=== PATIENT | female | born 1960 | race Caucasian/White ===

== ENCOUNTER → 2016-06-30 | Outpatient (CLI) | payer BC ==
[~2016-06-30] MED LIST: ALBUAER2 INH; CHOL100010 PO; CIPR1TAB11 PO; CLC100 PO; CLR10 PO; CLTP PO; IBUP-1050 PO; METR-163 PO; MULT-513 PO; OSTEO BI FLEX PO; OXYC1TAB3 PO; PROBIOTICS PO; SNG10 PO; ZNTT/150 PO
--- NOTE | 2016-06-30 09:57 | DIAGNOSTIC IMAGING REPORT ---
CT SCAN OF THE PARANASAL SINUSES CLINICAL HISTORY: Chronic sinusitis. Deviated nasal septum. COMPARISON STUDY: CT scan of the paranasal sinuses dated 03/28/2014. TECHNIQUE: High-resolution CT scan of the paranasal sinuses is performed. Images are reviewed in the axial, sagittal, and coronal planes. IV contrast was not administered for this examination. Examination is performed using the fusion protocol. CT DOSE: 547.45 mGy.cm FINDINGS: Maxillary antra: Trace dependent mucosal thickening is seen bilaterally. There are 2 incomplete bony septations seen within the inferior left maxillary antrum. Anterior ethmoid sinuses: Clear. Posterior ethmoid sinuses: Clear. Sphenoid sinuses: Trace mucosal thickening and fluid is seen on the right. Clear on the left. Frontal sinuses: Trace mucosal thickening is seen bilaterally. Ostiomeatal complexes: Patent bilaterally. Frontoethmoidal and sphenoethmoidal recesses: Patent bilaterally. Carotid arteries: The carotid arteries are protuberant but covered. A septal attachment is seen bilaterally. Ethmoid roofs: There is asymmetric elevation of the left ethmoid roof as compared to the right. Nasal turbinates: Normal in appearance. Nasal septum: There is mild leftward deviation of the bony nasal septum with a rightward projecting spur seen posteriorly. Optic nerves: Covered. Orbits: The bony orbits are intact. Orbital contents are normal in appearance. Calvarium: The imaged calvarium is normal in appearance Mastoid air cells: Well pneumatized. Brain parenchyma: Partially visualized brain parenchyma is within normal limits. IMPRESSION: Mild paranasal sinus disease as above. Electronically signed by: Hi Arana M.D. 06/30/2016 9:55 AM Dictated Date/Time: 06/30/2016 9:52 AM
== END | disposition home or self-care (01) ==
LOC: C.CTS 09:40
DX: J01.90 Acute sinusitis, unspecified (principal); J34.2 Deviated nasal septum; J30.9 Allergic rhinitis, unspecified

== ENCOUNTER → 2017-10-26 | Outpatient (CLI) | payer OTHER ==
[~2017-10-26] MED LIST changes: -OXYC1TAB3 PO; +RANI150T85 PO; -ZNTT/150 PO
--- NOTE | 2017-10-26 09:21 | DIAGNOSTIC IMAGING REPORT ---
CT SCAN OF THE CHEST WITHOUT IV CONTRAST CLINICAL HISTORY: Asthma. Laryngopharyngeal reflux. Cough. COMPARISON STUDY: Chest x-ray dated 10/30/2015. TECHNIQUE: CT scan of the thorax was performed from the thoracic inlet to the upper abdomen. Images are reviewed in the axial, sagittal, and coronal planes. IV contrast was not administered for this examination as per the referring clinician. A dose lowering technique was utilized adhering to the principles of ALARA. CT DOSE: 728.19 mGy.cm FINDINGS: Thyroid: Imaged portions of the thyroid gland are normal in size and attenuation. Thoracic aorta: The thoracic aorta is normal in caliber and demonstrates standard 3-vessel arch anatomy. Heart: The heart is normal in size and without pericardial effusion. There are scattered coronary artery calcifications. Lungs and pleural spaces: There is a small fat-containing Bochdalek hernia at the left lung base. No airspace consolidation or pleural effusion is identified. The trachea and central airways are clear. Mediastinum: There is no mediastinal lymphadenopathy. Sweetie: Not well assessed without IV contrast. Axillae: There is no axillary lymphadenopathy. Upper abdomen: There is a small hiatal hernia. The gallbladder surgically absent. Hepatic steatosis is observed. Diverticula are noted in the partially imaged left colon. Skeletal structures: The skeletal structures are osteopenic. No lytic or blastic bony lesions are seen. Mild degenerative change and scoliosis are noted in the thoracic spine. Arthritic change is also seen in the shoulders. IMPRESSION: The lungs are clear. Electronically signed by: Hi Arana M.D. 10/26/2017 9:19 AM Dictated Date/Time: 10/26/2017 9:16 AM
== END | disposition home or self-care (01) ==
LOC: C.CTS 09:03
PROVIDERS: ATTEND Internal Medicine Critical Care Medicine
DX: J45.909 Unspecified asthma, uncomplicated (principal); K21.9 Gastro-esophageal reflux disease without esophagitis

== ENCOUNTER 2020-12-17 20:47 | Inpatient (IN) ==
[2020-12-17] MEDS ORDERED: ONDANSETRON INJ 2 MG/ML 2 ML VIAL IV STA (21:12)
[2020-12-17] MEDS ORDERED: SODIUM CHLORIDE 0.9% 1000ML 2,000 ML IV ONE (21:12)
[2020-12-17] MEDS ORDERED: ACETAMINOPHEN 500 MG TAB PO STA (21:12)
[2020-12-17] MEDS ORDERED: MoRPHine SULFATE 10 MG/ML CARP/VIAL IV STA ×2 (21:12→23:10)
--- NOTE | 2020-12-17 21:15 | Emergency Department Note ---
Impression & Plan Severe sepsis, Diverticulitis, Lactic acidosis ED Provider Note Name: KANCHAN CARTER Age: 60 Sex: F Arrives Via: Ambulance Informant: Patient, EMS ED Provider: Bry Abbott MD Chief Complaint: Illness Impression: Severe Sepsis Acute Diverticulitis Lactic Acidosis Medical Decision Makin yr old female with history asthma and seasonal allergies who over the years has had periodic diverticulitis. Symptoms of lower abdominal pain starting 10 days ago unimproved with PO Flagyl. Rapidly worsening illness today with fevers, chills, rigors, and lightheaded. Arrives via EMS ill appearing and in moderate distress. Tachy, febrile, tachypneic with LLQ point TTP without peritonitis. Sepsis work-up initiated with labs, cultures, lactate, NSS Bolus (3L IV, Given the patients BMI >30, IBW was used to calculate at 30ml/kg+ fluid bolus), followed by empiric abx. CT obtained reveals acute diverticulitis with likely developing ileus. Following hydration she is looking remarkably improved, breathing comfortably and HR improving. Labs with lactic acidosis, mild wbc elevation and mild CRP-Procal elevations. Hospitalist consulted for further evaluation and management. Prior Medical Record and Triage/Nursing Notes reviewed by Me Additional history obtained from chart Differentials:Viral syndrome, otitis, pharyngitis, pneumonia, influenza, meningitis, urinary tract infection, sepsis, bacteremia, as well as other pathologies. Vital Signs: reviewed and remarkable for fever, tachy, tachypnea Interventions: saline lock, nss bolus 3 L IV, cefepime 2gm iv, vanco IV, morphine IV x 2, tylenol po Labs:Reviewed and remarkable for elevated wbc, crp, procal Imaging:X ray results are stated below per my interpretation: Chest: 1 view: No infiltrate, no effusion, normal cardiac border. [facility] Radiologist interpretation reviewed by me: "CT ABDOMEN & PELVIS With Contrast: Normal cardiac size. Clear lung bases. Possible mild diffuse fatty liver. Status post cholecystectomy otherwise unremarkable below system. Normal pancreas, spleen and bilateral adrenal glands. Tiny simple cysts within the right kidney measuring 4 mm. Otherwise normal right kidney. Normal left kidney. Atherosclerotic disease of aorta with no aneurysm. Fluid within the distal esophagus suggestive of reflux. Remainder of the stomach otherwise unremarkable. Several loops of small bowel slightly distended within the left upper quadrant up to a diameter of 3.8 cm,, likely localized ileus. A adjacent inflammatory changes in the region of the descending colon junction with the transverse portion by the splenic flexure in the region of diverticuli with thickening of the wall compatible with diverticulitis. No abscess. Normal appendix. Second site of inflammatory process at the level of the sigmoid junction with descending colon raising the concern of second side of diverticulitis. Uterine atrophy. Unremarkable urinary bladder. Degenerative disease of the spine. No abscess. Radiologist: Rayna Blue MD" EKG:Per My Interpretation: Indication Sepsis: Sinus Tachy 146 bpm, qtc 405. No Ectopy. diffuse ST depressions and some T wave inversions likely rate related. Compared to EKG 02/24/[address]ressions and T wave inversions new Cardiac/Tele Monitoring: Cardiac Monitoring: An Order was placed for continuous cardiac monitoring. The monitor shows a rate of 140 with a sinus tach rhythm. Consults:Dr Shaw KENNY Hospitalist Plan: Disposition:Hospitalization. Condition: Good History of Present Illness:60 yr old female arrives for evaluation of illness. Patient with 10 days of lower abdominal cramping. Increasing pain and radiation to hips and back over last few days. Worse with movement. Notes increasing fevers today and illness. Feels weakness and shaky. Associated headaches, chills mild diarrhea. No trauma, injuries, falls. She has been on Flagyl for 10 days without improvement. She has history of Diverticulitis several years ago. History of cholecystectomy, no bowel surgery.. Denies sob, chest pain, syncope, neck stiffness, rashes, leg swelling, back pain, urinary symptoms, bleeding/bruising, nor other symptoms. Exertion makes worse rest makes better. ROS: See above HPI for pertinent positives & negatives. A total of 10 systems reviewed and were otherwise negative. Past Medical History:Diverticulitis, Seasonal Allergies, Asthma Past Surgical History:Cholecystectomy, Parotidectomy, Tonsillectomy, [place] teeth Family History:See Below Social History:See Below Home Medications:See Below Allergies:See Below Vitals:Blood Pressure: 146/106, Pulse 145, RR 26, T 39.6C, O2 93% on RA Physical Exam: GENERAL: Patient is ill appearing and in moderate distress. EYES: No scleral icterus, unremarkable pupils. ENT: Mucous membranes dry, no nasal congestion. NECK: No masses appreciated, nomeningismus, trachea is midline. RESPIRATORY: No dyspnea though is tachypneic. Clear to auscultation and equal bilaterally. No wheeze, no rhonchi. CARDIOVASCULAR: Tachy.No murmurs, rubs, gallops appreciated. GASTROINTESTINAL: Abdomen soft, with point TTP over mid LLQ, otherwise non- tender, no peritonitis.Bowel sounds positive.No masses appreciated. BACK: No midline tenderness, no CVA tenderness EXTREMITIES: Normal motion all extremities, no cyanosis, no edema. NEUROLOGIC: Alert and oriented, no acute motor or sensory deficits, no focal weakness, cranial nerves grossly intact. SKIN: No rash, no jaundice, no diaphoresis. PSYCH: Appropriate GCS: 15 ED Course: Times/Reassessments: patient evaluated emergently on arrival at nursing request due to her being so ill appearing. Sepsis work-up & resuscitation initiated with multiple IVs obtained. Patient vastly improved with fluids. Agreeable to hospitalization Critical Care: I have personally spent 40 minutes of critical care time in the direct management of this patient. Severe sepsis due to diverticulitis with tachycardia, febrile, lactic acidosis. This was a life/limb threatening event. This 40 minutes is in excess of all separately billable procedures. Bry Abbott MD Past Med/Surg History Medical History (Updated 12/18/20 @ 02:22 by Bry Abbott MD) Acute diverticulitis Allergic rhinitis Asthma Surgical History (Updated 06/21/19 @ 14:40 by Noemi Belcher) History of colon surgery History of colonoscopy History of tonsillectomy and adenoidectomy Family History (Updated 06/21/19 @ 14:42 by Noemi Belcher) Mother Benign colon polyp Osteoporosis Aunt Colon cancer Osteoporosis Grandmother (Maternal) Colon cancer Father Congenital heart disease Diabetes Denies family history of Ovarian cancer Breast cancer Social History (Updated 06/21/19 @ 14:43 by Noemi Belcher) Smoking Status: Never smoker Hx Alcohol Use: No Hx Substance Use: No Preferred Language: Serbian Communication Ability: Effective Zipper Joiner Required: No Beliefs That Will Affect Care: None marital status: Current Living Situation: Spouse Other Information That Helps Us Care for You: No Feels Safe at Home: Yes Safety Concerns: Feels Safe At This Time Assistive Devices: Glasses Allergies Allergies Allergy/AdvReac Type Severity Reaction Status Date / Time Quinolones Allergy Mild Unknown Verified 10/06/21 21:06 clindamycin AdvReac Unknown hives from Verified 12/17/20 21:06 oral form levofloxacin AdvReac Unknown joint pain Verified 12/17/20 21:06 Penicillins AdvReac Unknown Unknown Verified 12/17/20 21:06 Home Meds Home Medications Medication Instructions Recorded Confirmed cetirizine 10 mg capsule (Zyrtec) 10 mg PO DAILY 02/27/19 12/17/20 metronidazole 500 mg tablet 500 mg PO TID 12/17/20 12/17/20 sulfamethoxazole 800 1 tab PO BID 12/17/20 12/17/20 mg-trimethoprim 160 mg tablet Previous Rx's Medication Instructions Recorded azelastine 205.5 mcg (0.15 %) 2 spray INTRANASAL DAILY #30 ml 10/23/20 nasal spray hydrocodone-homatropine 5 mg-1.5 5 ml PO Q6H PRN #473 ml 11/20/20 mg/5 mL oral syrup clotrimazole 10 mg fauzia 10 mg MUCOUS MEMBRANE TID PRN #90 12/10/20 tab Results & Data (ED) Vital Signs Vital Signs - 24 hr 12/17/20 20:53 12/17/20 21:00 12/17/20 21:10 Temperature 39.6 C H Temperature Source Oral Pulse Rate 148 H 145 H 138 H Pulse Rate from SpO2 Sensor 148 H 146 H Respiratory Rate 26 H 26 H 18 Respiratory Depth Normal Blood Pressure 146/106 H 146/106 H Blood Pressure Mean 119 119 Blood Pressure Position Sitting Pulse Oximetry 96 93 93 Oxygen Delivery Method Room Air Oxygen Flow Rate Sepsis Recent Fever Within 48 Hours Yes Sepsis New/Unexplained Change in Mental Status N/A Sepsis Action Taken by Nursing Physician Notified 12/17/20 21:30 12/17/20 22:19 12/17/20 22:34 Temperature Temperature Source Pulse Rate 126 H Pulse Rate from SpO2 Sensor 124 H 111 H 129 H Respiratory Rate 25 H 20 Respiratory Depth Blood Pressure 152/100 H Blood Pressure Mean 117 Blood Pressure Position Pulse Oximetry 93 95 97 Oxygen Delivery Method Oxygen Flow Rate Sepsis Recent Fever Within 48 Hours Sepsis New/Unexplained Change in Mental Status Sepsis Action Taken by Nursing 12/17/20 22:40 12/17/20 23:00 12/17/20 23:30 Temperature 38.9 C H Temperature Source Oral Pulse Rate 106 H 105 H Pulse Rate from SpO2 Sensor 108 H 105 H Respiratory Rate 21 21 Respiratory Depth Blood Pressure 126/71 127/79 Blood Pressure Mean 89 95 Blood Pressure Position Pulse Oximetry 94 95 Oxygen Delivery Method Nasal Cannula Oxygen Flow Rate 3 Sepsis Recent Fever Within 48 Hours Sepsis New/Unexplained Change in Mental Status Sepsis Action Taken by Nursing 12/18/20 00:00 Temperature Temperature Source Pulse Rate 99 H Pulse Rate from SpO2 Sensor 99 H Respiratory Rate 18 Respiratory Depth Blood Pressure 127/73 Blood Pressure Mean 91 Blood Pressure Position Pulse Oximetry 94 Oxygen Delivery Method Oxygen Flow Rate Sepsis Recent Fever Within 48 Hours Sepsis New/Unexplained Change in Mental Status Sepsis Action Taken by Nursing Laboratory Data Result diagrams: 12/17/20 20:50 12/17/20 20:50 Lab Results 12/17/20 12/17/20 12/17/20 Range/Units 20:50 20:50 20:50 WBC 12.30 H (4.8-10.8) K/uL RBC 4.86 (4.2-5.4) M/uL Hgb 14.5 (12.0-16.0) g/dL POC Hgb (12.0-16.0) g/dl Hct 42.4 (37-47) % POC Hct (37-47) % MCV 87.2 (80-100) fL MCH 29.8 (25-34) pg MCHC 34.2 (32-36) g/dL RDW Std Deviation 39.5 (36.4-46.3) fL RDW Coeff of Jessenia 12.4 (11.5-14.5) % Plt Count 384 (130-400) K/uL MPV 10.3 (7.4-10.4) fL Immature Gran % (Auto) 0.6 % Neut % (Auto) 91.4 % Lymph % (Auto) 7.0 % [place] % (Auto) 0.9 % Eos % (Auto) 0.1 % Baso % (Auto) 0.0 % Neut # (Auto) 11.25 H (1.4-6.5) K/uL Lymph # (Auto) 0.86 L (1.2-3.4) K/uL [place] # (Auto) 0.11 (0.11-0.59) K/uL Eos # (Auto) 0.01 (0-0.5) K/uL Baso # (Auto) 0.00 (0-0.2) K/uL Immature Gran # (Auto) 0.07 H (0.00-0.02) K/uL POC Sodium (135-144) mmol/L Sodium 137 (136-145) mmol/L POC Potassium (3.3-5.0) mmol/L Potassium 3.5 (3.5-5.1) mmol/L POC Chloride (101-112) mmol/L Chloride 104 (98-107) mmol/L Carbon Dioxide 23 (21-32) mmol/L POC Total CO2 (24-31) mmol/L Anion Gap 10.0 (3-11) POC Anion Gap (16-25) mmol/L POC BUN (7-18) mg/dl BUN 15 (7-18) mg/dl Creatinine 0.91 (0.6-1.2) mg/dl POC Creatinine (0.6-1.3) mg/dl Est Cr Clr Drug Dosing 85.3 ml/min Est GFR ( Amer) 78.9 ml/min Est GFR (Non-Af Amer) 68.1 ml/min BUN/Creatinine Ratio 16.5 (10-20) Glucose 124 H (70-99) mg/dl POC Glucose (other) (70-99) mg/dl Lactate 3.6 H* (0.4-2.0) mmol/L Calcium 9.6 (8.5-10.1) mg/dl POC Ioniz Calcium Bryce (1.12-1.32) mmol/l Magnesium 1.7 L (1.8-2.4) mg/dl Total Bilirubin 0.2 (0.2-1) mg/dl Direct Bilirubin < 0.1 (0-0.2) mg/dl AST 27 (15-37) U/L ALT 34 (12-78) U/L Alkaline Phosphatase 71 (45-117) U/L Troponin I < 0.015 (0-0.045) ng/ml C-Reactive Protein 2.29 H (0-0.29) mg/dl Total Protein 7.5 (6.4-8.2) gm/dl Albumin 3.5 (3.4-5.0) gm/dl Lipase 109 (73-393) U/L Procalcitonin (0-0.5) ng/ml Urine Color Urine Appearance (Clear) Urine pH (4.5-7.5) Ur Specific [place] (1.000-1.030) Urine Protein (Negative) Urine Glucose (UA) (Negative) Urine Ketones (Negative) Urine Blood (Negative) Urine Nitrite (Negative) Urine Bilirubin (Negative) Urine Urobilinogen (Negative) Ur Leukocyte Esterase (Negative) Urine WBC (Auto) (0-5) /hpf Urine RBC (Auto) (0-4) /hpf U Hyaline Cast (Auto) (0-5) /lpf U Epithel Cells (Auto) (0-5) /lpf Urine Bacteria (Auto) (Negative) COVID-19 Eval Order SARS-CoV-2 (PCR) (Negative) 12/17/20 12/17/20 12/17/20 Range/Units 20:50 20:50 20:50 WBC (4.8-10.8) K/uL RBC (4.2-5.4) M/uL Hgb (12.0-16.0) g/dL POC Hgb (12.0-16.0) g/dl Hct (37-47) % POC Hct (37-47) % MCV (80-100) fL MCH (25-34) pg MCHC (32-36) g/dL RDW Std Deviation (36.4-46.3) fL RDW Coeff of Jessenia (11.5-14.5) % Plt Count (130-400) K/uL MPV (7.4-10.4) fL Immature Gran % (Auto) % Neut % (Auto) % Lymph % (Auto) % [place] % (Auto) % Eos % (Auto) % Baso % (Auto) % Neut # (Auto) (1.4-6.5) K/uL Lymph # (Auto) (1.2-3.4) K/uL [place] # (Auto) (0.11-0.59) K/uL Eos # (Auto) (0-0.5) K/uL Baso # (Auto) (0-0.2) K/uL Immature Gran # (Auto) (0.00-0.02) K/uL POC Sodium (135-144) mmol/L Sodium (136-145) mmol/L POC Potassium (3.3-5.0) mmol/L Potassium (3.5-5.1) mmol/L POC Chloride (101-112) mmol/L Chloride (98-107) mmol/L Carbon Dioxide (21-32) mmol/L POC Total CO2 (24-31) mmol/L Anion Gap (3-11) POC Anion Gap (16-25) mmol/L POC BUN (7-18) mg/dl BUN (7-18) mg/dl Creatinine (0.6-1.2) mg/dl POC Creatinine (0.6-1.3) mg/dl Est Cr Clr Drug Dosing ml/min Est GFR ( Amer) ml/min Est GFR (Non-Af Amer) ml/min BUN/Creatinine Ratio (10-20) Glucose (70-99) mg/dl POC Glucose (other) (70-99) mg/dl Lactate (0.4-2.0) mmol/L Calcium (8.5-10.1) mg/dl POC Ioniz Calcium Bryce (1.12-1.32) mmol/l Magnesium (1.8-2.4) mg/dl Total Bilirubin (0.2-1) mg/dl Direct Bilirubin (0-0.2) mg/dl AST (15-37) U/L ALT (12-78) U/L Alkaline Phosphatase (45-117) U/L Troponin I (0-0.045) ng/ml C-Reactive Protein (0-0.29) mg/dl Total Protein (6.4-8.2) gm/dl Albumin (3.4-5.0) gm/dl Lipase (73-393) U/L Procalcitonin 0.83 H (0-0.5) ng/ml Urine Color Urine Appearance (Clear) Urine pH (4.5-7.5) Ur Specific [place] (1.000-1.030) Urine Protein (Negative) Urine Glucose (UA) (Negative) Urine Ketones (Negative) Urine Blood (Negative) Urine Nitrite (Negative) Urine Bilirubin (Negative) Urine Urobilinogen (Negative) Ur Leukocyte Esterase (Negative) Urine WBC (Auto) (0-5) /hpf Urine RBC (Auto) (0-4) /hpf U Hyaline Cast (Auto) (0-5) /lpf U Epithel Cells (Auto) (0-5) /lpf Urine Bacteria (Auto) (Negative) COVID-19 Eval Order Covid19 at [facility] SARS-CoV-2 (PCR) NEGATIVE (Negative) 12/17/20 12/17/20 12/17/20 Range/Units 21:20 22:55 23:33 WBC (4.8-10.8) K/uL RBC (4.2-5.4) M/uL Hgb (12.0-16.0) g/dL POC Hgb 14.6 (12.0-16.0) g/dl Hct (37-47) % POC Hct 43 (37-47) % MCV (80-100) fL MCH (25-34) pg MCHC (32-36) g/dL RDW Std Deviation (36.4-46.3) fL RDW Coeff of Jessenia (11.5-14.5) % Plt Count (130-400) K/uL MPV (7.4-10.4) fL Immature Gran % (Auto) % Neut % (Auto) % Lymph % (Auto) % [place] % (Auto) % Eos % (Auto) % Baso % (Auto) % Neut # (Auto) (1.4-6.5) K/uL Lymph # (Auto) (1.2-3.4) K/uL [place] # (Auto) (0.11-0.59) K/uL Eos # (Auto) (0-0.5) K/uL Baso # (Auto) (0-0.2) K/uL Immature Gran # (Auto) (0.00-0.02) K/uL POC Sodium 137 (135-144) mmol/L Sodium (136-145) mmol/L POC Potassium 3.6 (3.3-5.0) mmol/L Potassium (3.5-5.1) mmol/L POC Chloride 103 (101-112) mmol/L Chloride (98-107) mmol/L Carbon Dioxide (21-32) mmol/L POC Total CO2 20 L (24-31) mmol/L Anion Gap (3-11) POC Anion Gap 20.0 (16-25) mmol/L POC BUN 15 (7-18) mg/dl BUN (7-18) mg/dl Creatinine (0.6-1.2) mg/dl POC Creatinine 0.6 (0.6-1.3) mg/dl Est Cr Clr Drug Dosing ml/min Est GFR ( Amer) ml/min Est GFR (Non-Af Amer) ml/min BUN/Creatinine Ratio (10-20) Glucose (70-99) mg/dl POC Glucose (other) 132 H (70-99) mg/dl Lactate 2.9 H* (0.4-2.0) mmol/L Calcium (8.5-10.1) mg/dl POC Ioniz Calcium Bryce 1.10 L (1.12-1.32) mmol/l Magnesium (1.8-2.4) mg/dl Total Bilirubin (0.2-1) mg/dl Direct Bilirubin (0-0.2) mg/dl AST (15-37) U/L ALT (12-78) U/L Alkaline Phosphatase (45-117) U/L Troponin I (0-0.045) ng/ml C-Reactive Protein (0-0.29) mg/dl Total Protein (6.4-8.2) gm/dl Albumin (3.4-5.0) gm/dl Lipase (73-393) U/L Procalcitonin (0-0.5) ng/ml Urine Color Yellow Urine Appearance Clear (Clear) Urine pH 5.0 (4.5-7.5) Ur Specific [place] 1.034 H (1.000-1.030) Urine Protein Negative (Negative) Urine Glucose (UA) Negative (Negative) Urine Ketones Negative (Negative) Urine Blood Trace H (Negative) Urine Nitrite Negative (Negative) Urine Bilirubin Negative (Negative) Urine Urobilinogen Negative (Negative) Ur Leukocyte Esterase Trace H (Negative) Urine WBC (Auto) 1-5 (0-5) /hpf Urine RBC (Auto) 0-4 (0-4) /hpf U Hyaline Cast (Auto) 1-5 (0-5) /lpf U Epithel Cells (Auto) >30 H (0-5) /lpf Urine Bacteria (Auto) Negative (Negative) COVID-19 Eval Order SARS-CoV-2 (PCR) (Negative) Administered Medications Discontinued Medications Acetaminophen (Acetaminophen 500 Mg Tab) 500 mg PO NOW STA Stop: 12/17/20 21:13 Last Admin: 12/17/20 21:25 Dose: 500 mg Documented by: [id number] Sodium Chloride (Nss 1000ml) 1,000 mls @ 999 mls/hr IV .Q1H1M ONE Stop: 12/17/20 22:12 Last Infusion: 12/18/20 01:11 Dose: 0 mls/hr Documented by: [id number] Admin: 12/17/20 23:06 Dose: 999 mls/hr Documented by: [id number] Sodium Chloride (Nss 1000ml) 2,000 mls @ 999 mls/hr IV .Q2H1M ONE Stop: 12/17/20 23:12 Last Infusion: 12/17/20 23:47 Dose: 0 mls/hr Documented by: [id number] Admin: 12/17/20 21:20 Dose: 999 mls/hr Documented by: [id number] Cefepime HCl (Maxipime) 2,000 mg in 20 mls @ 5 mls/min IV NOW STA; Protocol Stop: 12/17/20 22:00 Last Admin: 12/17/20 22:37 Dose: 5 mls/min Documented by: [id number] Vancomycin HCl 2,250 mg/ (Sodium Chloride) 545 mls @ 200 mls/hr IV NOW ONE Stop: 12/18/20 00:40 Last Infusion: 12/18/20 01:54 Dose: 0 mls/hr Documented by: [id number] Admin: 12/17/20 22:37 Dose: 200 mls/hr Documented by: [id number] Magnesium Sulfate/Dextrose (Magnesium Sulfate / D5w) 1 gm in 100 mls @ 50 mls/hr IV Q2H STA Stop: 12/18/20 02:05 Last Admin: 12/18/20 00:27 Dose: 50 mls/hr Documented by: [id number] Ioversol (Optiray 320 125ml) 107 ml IV ONCE ONE Stop: 12/17/20 22:08 Last Admin: 12/17/20 22:12 Dose: 107 ml Documented by: [id number] Morphine Sulfate (Morphine Sulfate 10 Mg/Ml Carp/Vial) 6 mg IV NOW STA Stop: 12/17/20 21:13 Last Admin: 12/17/20 21:27 Dose: 6 mg Documented by: [id number] Morphine Sulfate (Morphine Sulfate 10 Mg/Ml Carp/Vial) 6 mg IV NOW STA Stop: 12/17/20 23:11 Last Admin: 12/17/20 23:25 Dose: 6 mg Documented by: [id number] Ondansetron HCl (Ondansetron Inj 2 Mg/Ml 2 Ml Vial) 4 mg IV NOW STA Stop: 12/17/20 21:13 Last Admin: 12/17/20 21:25 Dose: 4 mg Documented by: [id number] Discharge Plan Visit Data Chief Complaint: Illness Stated Complaint: ILLNESS ED Provider: Bry Abbott Discharge Problem: Severe sepsis, Diverticulitis, Lactic acidosis Discharge Instructions Interventions: ED Discharge Assessment Last Done: 12/18/20 02:16
[2020-12-17] MEDS: SODIUM CHLORIDE 0.9% 1000ML 1,000 ML IV ONE ×2 (21:19→23:06)
[2020-12-17 21:33] LABS: iSTAT Creatinine 0.6 mg/dl (0.6-1.3); iSTAT Hemoglobin 14.6 g/dl (12.0-16.0); iSTAT Ionized Calcium 1.1 mmol/l (1.12-1.32); iSTAT Potassium 3.6 mmol/L (3.3-5.0)
[2020-12-17 21:44] LABS: Eosinophils # (auto) 0.01 K/uL (0-0.5); Eosinophils % (auto) 0.1 %; Hematocrit (blood only) 42.4 % (37-47); Hemoglobin 14.5 g/dL (12.0-16.0); Immature Granulocytes # (auto) 0.07 K/uL (0.00-0.02); Immature Granulocytes % (auto) 0.6 %; Lymphocytes # (auto) 0.86 K/uL (1.2-3.4); Mean Corpuscular Hemoglobin 29.8 pg (25-34); Mean Corpuscular Hgb Conc 34.2 g/dL (32-36); Mean Corpuscular Volume 87.2 fL (80-100); Mean Platelet Volume 10.3 fL (7.4-10.4); Monocytes # (auto) 0.11 K/uL (0.11-0.59); Monocytes % (auto) 0.9 %; Neutrophils # (auto) 11.25 K/uL (1.4-6.5); Neutrophils % (auto) 91.4 %; Platelet Count 384 K/uL (130-400); RDW Coefficient of Variation 12.4 % (11.5-14.5); RDW Standard Deviation 39.5 fL (36.4-46.3); Red Blood Count 4.86 M/uL (4.2-5.4)
[2020-12-17] MEDS ORDERED: VANCOMYCIN CONSULT ACTIVE PRN (21:57)
[2020-12-17] MEDS ORDERED: CEFEPIME 2,000 MG/20 ML VIAL IV STA (21:57)
[2020-12-17] MEDS ORDERED: VANCOMYCIN HCL 2,250 MG in SODIUM CHLORIDE 0.9% 500 ML IV ONE (21:57)
[2020-12-17 22:02] LABS: Alanine Aminotransferase 34 U/L (12-78); Albumin Level 3.5 gm/dl (3.4-5.0); BUN Creatinine Ratio 16.5 (10-20); Bilirubin Direct < 0.1 mg/dl (0-0.2); Blood Urea Nitrogen 15 mg/dl (7-18); C Reactive Protein 2.29 mg/dl (0-0.29); Calcium 9.6 mg/dl (8.5-10.1); Carbon Dioxide 23 mmol/L (21-32); Chloride 104 mmol/L (98-107); Creatinine Clr Calc Pharmacy 85.3 ml/min; Est GFR (African American) 78.9 ml/min; Est GFR (Non-African American) 68.1 ml/min; Glucose 124 mg/dl (70-99); Lipase 109 U/L (73-393); Magnesium 1.7 mg/dl (1.8-2.4); Potassium 3.5 mmol/L (3.5-5.1); Sodium 137 mmol/L (136-145)
[2020-12-17 22:06] LABS: Alkaline Phosphatase 71 U/L (45-117); Aspartate Aminotransferase 27 U/L (15-37); Bilirubin,Total 0.2 mg/dl (0.2-1); Total Protein 7.5 gm/dl (6.4-8.2); Troponin I < 0.015 ng/ml (0-0.045)
[2020-12-17] MEDS ORDERED: OPTIRAY 320 125ml IV ONE (22:07)
[2020-12-17 23:10] LABS: Appearance Urine Clear (Clear); Bacteria Urine Automated Negative (Negative); Bilirubin Urine Negative (Negative); Blood Urine Trace (Negative); Color Urine Yellow; Epithelial Cell Urine Auto >30 /lpf (0-5); Glucose Urine UA Negative (Negative); Ketones Urine Negative (Negative); Leukocyte Esterase Urine Trace (Negative); Nitrite Urine Negative (Negative); Protein Urine Negative (Negative); RBC Urine Automated 0-4 /hpf (0-4); Specific Gravity Urine 1.034 (1.000-1.030); Urobilinogen Urine Negative (Negative)
[2020-12-18] MEDS ORDERED: MAGNESIUM SULFATE / D5W 1 GM/100 ML BAG IV STA (00:06)
--- NOTE | 2020-12-18 00:49 | History & Physical Report ---
Date of Service December 18, 2020 Assessment & Plan (1) Acute diverticulitis: Plan: 60yo female with history of diverticulitis presenting with sepsis syndrome secondary to acute diverticulitis with focal ileus. Patient febrile, tachycardic, tachypneic, WBC=12.3, initial lactic acid=3.6. Elevated procalcitonin as well at 0.83. CT of the abdomen suggestive of two foci of acute diverticulitis as well as focal ileus. No perforation or abscess. Abdomen is tender to palpation without obvious distention, rebound/guarding or peritoneal signs. -Admit to medical with telemetry -Follow cultures sent from ER -Tx with Cefepime and Flagyl -Keep NPO except ice chips and sips of water with meds -Morphine as needed for pain control -Zofran as needed for nausea -Repeat lactic acid pending -General surgery consultation appreciated - do not anticipate need for surgical intervention at this time (2) Asthma: Plan: Patient with longstanding history of asthma. She has faint end-expiratory wheezing noted on exam. -Albuterol as needed Patient mentioned some recent DOW noted this past weekend while in [place]. Patient became short of breath after walking a short distance. Thought maybe secondary to being inactive during Covid. No chest pain. Troponin is unremarkable. Patient is scheduled for a routine physical in early February and will mention this issue to her PCP. (3) Allergic rhinitis: Plan: Patient reports longstanding history of chronic cough. She has been seen by Allergy/Immunology as well as Pulmonary for this condition. She states she takes Hycodin cough medicine qHS -Continue Hycodin as needed -Continue Azelastine and Zyrtec -? utility of PFT testing in the outpatient setting? Patient has asthma, also is a former smoker appx 17 pack/year history. ?COPD component to cough vs upper airway pathology Admission and Anticipated Discharge Date Admission Date: December 18, 2020 History of Present Illness Chief Complaint: Abdominal pain Primary Care Provider: German Richards MD Jeniffer Phoenix is a 60yo female with history of Diverticulitis (diagnosed in 2005, prior perforation which resolved with supportive care - no history of surgical intervention) presenting with acute diverticulitis. Patient reports developing lower abdominal discomfort 10 days ago as well as bloating. She has a prescription for Flagyl and Bactrim at home which she is to take should she develop acute diverticulitis symptoms. She took only Flagyl x 10 days. Symptoms persisted. She was seen by her PCP this afternoon - prescribed additional course of Flagyl x 10 days as well as Bactrim. Patient went home and took her antibiotics x 1 dose this afternoon. Then developed body aches, nausea, chills and rigors. She called the Nurse-line and was instructed to come to the ER. Additionally she has lower abdominal discomfort, bloating, non-bloody diarrhea and feeling of abdominal fullness. Fever of 101.3 prior to arrival, 103 by EMS. Upon arrival to the ER patient febrile at 38.9, tachycardic at 126bpm, hypertensive at 152/100, tachypneic at 25 breaths/min, saturating 93% on RA. She had an elevated lactic acid level of 3.6. ER Course: Morphine 6mg + 6mg IV, Magnesium x 1gm, NSS x 3L, Tylenol 500mg, Zofran 4mg IV, Cefepime 2gm, Vancomycin 2250mg Allergies Allergy/AdvReac Type Severity Reaction Status Date / Time Quinolones Allergy Mild Unknown Verified 12/17/20 21:06 clindamycin AdvReac Unknown hives from Verified 12/17/20 21:06 oral form levofloxacin AdvReac Unknown joint pain Verified 12/17/20 21:06 Penicillins AdvReac Unknown Unknown Verified 12/17/20 21:06 Home Medications Medication Instructions Recorded Confirmed Type cetirizine 10 mg capsule (Zyrtec) 10 mg PO DAILY 02/27/19 12/17/20 History azelastine 205.5 mcg (0.15 %) 2 spray INTRANASAL DAILY #30 ml 10/23/20 12/17/20 Rx nasal spray hydrocodone-homatropine 5 mg-1.5 5 ml PO Q6H PRN #473 ml 11/20/20 12/17/20 Rx mg/5 mL oral syrup clotrimazole 10 mg fauzia 10 mg MUCOUS MEMBRANE TID PRN #90 12/10/20 12/17/20 Rx tab metronidazole 500 mg tablet 500 mg PO TID 12/17/20 12/17/20 History sulfamethoxazole 800 1 tab PO BID 12/17/20 12/17/20 History mg-trimethoprim 160 mg tablet Past Med/Surg History Medical History (Updated 12/18/20 @ 00:30 by Winnie Squires DO) Acute diverticulitis Allergic rhinitis Asthma Surgical History (Updated 06/21/19 @ 14:40 by Noemi Belcher) History of colon surgery History of colonoscopy History of tonsillectomy and adenoidectomy Family History (Updated 06/21/19 @ 14:42 by Noemi Belcher) Mother Benign colon polyp Osteoporosis Aunt Colon cancer Osteoporosis Grandmother (Maternal) Colon cancer Father Congenital heart disease Diabetes Denies family history of Ovarian cancer Breast cancer Social History (Updated 06/21/19 @ 14:43 by Noemi Belcher) Smoking Status: Never smoker Hx Alcohol Use: Yes (social) Preferred Language: Pashto marital status: Feels Safe at Home: Yes Review of Systems Review of Systems: All systems reviewed & are unremarkable except as noted in HPI & below Physical Exam Physical Exam: General: patient resting comfortably, NAD, non-toxic in appearance, AA&O x 4 Skin: warm, dry, intact, no rashes or lesions HEENT: NC/AT, PERRL, EOMI, anicteric sclera, conjunctiva without injection, external ear normal to inspection and nontender, nares patent, moist mucus membranes, dentition intact, no oropharyngeal lesions, neck supple, trachea midline, no LAD, no thyromegaly, no JVD Heart: +S1/S2, regular, 2/6 MONA at LSB Lungs: equal air entry bilaterally, scattered end-expiratory wheezing Abd: +BS, soft, ND, tender to palpation in lower abdomen without rebound/guarding/peritoneal signs Ext: warm, 2+ pulses in UE/LE bilaterally, no clubbing/cyanosis or edema Neuro: nonfocal, patient AA&O x 4, speech intact, no facial droop, moving all extremities on command with equal strength 5/5 Results & Data Results & Data ([facility]) Vital Signs (Past 12 Hours) Vital Signs Temp Pulse Resp BP Pulse Ox 12/18/20 00:00 99 H 18 127/73 94 12/17/20 23:30 105 H 21 127/79 95 12/17/20 23:00 106 H 21 126/71 94 12/17/20 22:40 38.9 C H 12/17/20 22:34 97 10/06/21 22:19 20 95 12/17/20 21:30 126 H 25 H 152/100 H 93 12/17/20 21:10 39.6 C H 138 H 18 146/106 H 93 12/17/20 21:00 145 H 26 H 146/106 H 93 12/17/20 20:53 148 H 26 H 96 Laboratory Results Laboratory Results WBC 12.30 K/uL (4.8-10.8) H 12/17/20 20:50 RBC 4.86 M/uL (4.2-5.4) 12/17/20 20:50 Hgb 14.5 g/dL (12.0-16.0) 12/17/20 20:50 POC Hgb 14.6 g/dl (12.0-16.0) 12/17/20 21:20 Hct 42.4 % (37-47) 12/17/20 20:50 POC Hct 43 % (37-47) 12/17/20 21:20 MCV 87.2 fL (80-100) 12/17/20 20:50 MCH 29.8 pg (25-34) 12/17/20 20:50 MCHC 34.2 g/dL (32-36) 12/17/20 20:50 RDW Std Deviation 39.5 fL (36.4-46.3) 12/17/20 20:50 RDW Coeff of Jessenia 12.4 % (11.5-14.5) 12/17/20 20:50 Plt Count 384 K/uL (130-400) 12/17/20 20:50 MPV 10.3 fL (7.4-10.4) 12/17/20 20:50 Immature Gran % (Auto) 0.6 % 12/17/20 20:50 Neut % (Auto) 91.4 % 12/17/20 20:50 Lymph % (Auto) 7.0 % 12/17/20 20:50 [place] % (Auto) 0.9 % 12/17/20 20:50 Eos % (Auto) 0.1 % 12/17/20 20:50 Baso % (Auto) 0.0 % 12/17/20 20:50 Neut # (Auto) 11.25 K/uL (1.4-6.5) H 12/17/20 20:50 Lymph # (Auto) 0.86 K/uL (1.2-3.4) L 12/17/20 20:50 [place] # (Auto) 0.11 K/uL (0.11-0.59) 12/17/20 20:50 Eos # (Auto) 0.01 K/uL (0-0.5) 12/17/20 20:50 Baso # (Auto) 0.00 K/uL (0-0.2) 12/17/20 20:50 Immature Gran # (Auto) 0.07 K/uL (0.00-0.02) H 12/17/20 20:50 POC Sodium 137 mmol/L (135-144) 12/17/20 21:20 Sodium 137 mmol/L (136-145) 12/17/20 20:50 POC Potassium 3.6 mmol/L (3.3-5.0) 12/17/20 21:20 Potassium 3.5 mmol/L (3.5-5.1) 12/17/20 20:50 POC Chloride 103 mmol/L (101-112) 12/17/20 21:20 Chloride 104 mmol/L (98-107) 12/17/20 20:50 Carbon Dioxide 23 mmol/L (21-32) 12/17/20 20:50 POC Total CO2 20 mmol/L (24-31) L 12/17/20 21:20 Anion Gap 10.0 (3-11) 12/17/20 20:50 POC Anion Gap 20.0 mmol/L (16-25) 12/17/20 21:20 POC BUN 15 mg/dl (7-18) 12/17/20 21:20 BUN 15 mg/dl (7-18) 12/17/20 20:50 Creatinine 0.91 mg/dl (0.6-1.2) 12/17/20 20:50 POC Creatinine 0.6 mg/dl (0.6-1.3) 12/17/20 21:20 Est Cr Clr Drug Dosing 85.3 ml/min 12/17/20 20:50 Est GFR ( Amer) 78.9 ml/min 12/17/20 20:50 Est GFR (Non-Af Amer) 68.1 ml/min 12/17/20 20:50 BUN/Creatinine Ratio 16.5 (10-20) 12/17/20 20:50 Glucose 124 mg/dl (70-99) H 12/17/20 20:50 POC Glucose (other) 132 mg/dl (70-99) H 12/17/20 21:20 Lactate 3.6 mmol/L (0.4-2.0) H* 12/17/20 20:50 Calcium 9.6 mg/dl (8.5-10.1) 12/17/20 20:50 POC Ioniz Calcium Bryce 1.10 mmol/l (1.12-1.32) L 12/17/20 21:20 Magnesium 1.7 mg/dl (1.8-2.4) L 12/17/20 20:50 Total Bilirubin 0.2 mg/dl (0.2-1) 12/17/20 20:50 Direct Bilirubin < 0.1 mg/dl (0-0.2) 12/17/20 20:50 AST 27 U/L (15-37) 12/17/20 20:50 ALT 34 U/L (12-78) 12/17/20 20:50 Alkaline Phosphatase 71 U/L (45-117) 12/17/20 20:50 Troponin I < 0.015 ng/ml (0-0.045) 12/17/20 20:50 C-Reactive Protein 2.29 mg/dl (0-0.29) H 12/17/20 20:50 Total Protein 7.5 gm/dl (6.4-8.2) 12/17/20 20:50 Albumin 3.5 gm/dl (3.4-5.0) 12/17/20 20:50 Lipase 109 U/L (73-393) 12/17/20 20:50 Procalcitonin 0.83 ng/ml (0-0.5) H 12/17/20 20:50 Urine Color Yellow 12/17/20 22:55 Urine Appearance Clear (Clear) 12/17/20 22:55 Urine pH 5.0 (4.5-7.5) 12/17/20 22:55 Ur Specific Mobile 1.034 (1.000-1.030) H 12/17/20 22:55 Urine Protein Negative (Negative) 12/17/20 22:55 Urine Glucose (UA) Negative (Negative) 12/17/20 22:55 Urine Ketones Negative (Negative) 12/17/20 22:55 Urine Blood Trace (Negative) H 12/17/20 22:55 Urine Nitrite Negative (Negative) 12/17/20 22:55 Urine Bilirubin Negative (Negative) 12/17/20 22:55 Urine Urobilinogen Negative (Negative) 12/17/20 22:55 Ur Leukocyte Esterase Trace (Negative) H 12/17/20 22:55 Urine WBC (Auto) 1-5 /hpf (0-5) 12/17/20 22:55 Urine RBC (Auto) 0-4 /hpf (0-4) 12/17/20 22:55 U Hyaline Cast (Auto) 1-5 /lpf (0-5) 12/17/20 22:55 U Epithel Cells (Auto) >30 /lpf (0-5) H 12/17/20 22:55 Urine Bacteria (Auto) Negative (Negative) 12/17/20 22:55 COVID-19 Eval Order Covid19 at [facility] 12/17/20 20:50 SARS-CoV-2 (PCR) NEGATIVE (Negative) 12/17/20 20:[address] Abdomen and Pelvis with contrast - Normal cardiac size cardiology. Clear lung bases. Possible mild diffuse fatty liver. Status post cholecystectomy otherwise unremarkable below system. Normal pancreas, spleen and bilateral adrenal glands. Tiny simple cyst within the kidney measuring 4 mm. Otherwise normal right kidney. Normal left kidney. Atherosclerotic disease of the aorta with no aneurysm. Fluid within the distal esophagus suggestive of reflux. Remainder of the stomach otherwise unremarkable. Several loops of small bowel slightly distended within the left upper quadrant up to diameter of 3.8 cm, likely localized ileus. An adjacent inflammatory changes in the region of the descending colon junction with the transverse portion by the splenic flexure in the region of diverticuli with thickening of the wall compatible with diverticulitis. No abscess. Normal appendix. Second site of inflammatory process at the level of the sigmoid junction with descending colon raising be considered a second site of diverticulitis. Uterine atrophy. Unremarkable urinary bladder. Degenerative disease of the spine. No abscess Code Status & VTE Plan VTE Prophylaxis Plan VTE Prophylaxis will be ordered: Yes PG Care Time/CCT Total # of Minutes Spent Total Time Spent with Patient: Total time spent is greater than 50% in coordination of care (as documented) at patient's floor/unit and/or counseling patient: Coding Level of Care Code 12612 Initial Inpt Care Lvl 2 Diagnoses Asthma J45.909 Allergic rhinitis J30.9 Acute diverticulitis K57.92
[2020-12-18] MEDS ORDERED: KETOROLAC TROMETHAMINE 15 MG/ML VIAL IV STA (02:07)
[2020-12-18] MEDS ORDERED: HYDROcodone/HOMATROPINE SYRUP 5MG/1.5MG 5ML UDP PO PRN (02:18)
[2020-12-18] MEDS ORDERED: ONDANSETRON INJ 2 MG/ML 2 ML VIAL IV PRN (02:18)
[2020-12-18] MEDS ORDERED: ALBUTEROL 0.5% NEB SOLN 2.5 MG/0.5 ML VIAL NEB PRN (02:18)
[2020-12-18] MEDS: MoRPHine SULFATE 4 MG/ML 1 ML CARP\\VIAL IV PRN ×4 (03:04→22:11)
[2020-12-18] MEDS: LACTATED RINGER'S 1,000 ML IV SCH ×2 (03:04→15:11)
[2020-12-18] MEDS: metroNIDAZOLE 500 MG/100 ML BAG IV SCH ×3 (03:04→18:36)
--- NOTE | 2020-12-18 05:13 | Surgery Consultation ---
Date of Consultation December 18, 2020 Assessment & Plan (1) Diverticulitis: Patient has been admitted on the hospitalist service. We recommend proceeding as follows: Implement bowel rest. Will be okay if the patient had some ice chips only but would not have a anything further than that. We will plan on reintroducing patient's diet beginning with clear liquids once clinical improvement has been noted Provide IV fluid for hydration Provide analgesics Provide antiemetics Continue antibiotics. Patient has been started on intravenous Flagyl as well as cefepime. Biotics can be transitioned to oral once further clinical improvement is noted. The present time the patient's not require any acute surgical intervention. I did discuss with the patient that any emergent surgery may involve a colostomy which she would like to avoid. I also discussed with her that if surgical intervention is entertained in the future would be preferable for patient to have a more up-to-date colonoscopy as her most recent one was not since 2012. We will continue following while patient is hospitalized. Remainder of plan as directed by the primary service Dr. Mackey-patient was seen in the emergency room-she is resting comfortably and feels better. Her temperature is coming down Interesting that her CT does not show significant perforation or abscess and that she has evidence of inflammation in 2 sites Distal transverse colon and proximal sigmoid colon. Very limited p.o. with ice only for 48 hours and then very slowly advance her diet I would not be in a hutton to switch her to oral antibiotics and at least IV antibiotics for 3 to 4 days possibly longer. We will consider rescanning the patient prior to any consideration of surgical intervention as an open operation at this point would cause significant morbidity for the patient My partners and Dr. Spangler will be covering over the weekend History of Present Illness Reason for Consultation: Diverticulitis Attending Physician: Winnie Squires DO History of Present Illness This is 60-year-old female who presented to [facility] ry abdominal pain. The patient states that she has had abdominal pain for approximately 10 days. She does have a history of diverticulitis in the past. She notes in 2005 she suffered an episode of acute diverticulitis with a contained rupture. During this episode she did not require surgery and she recovered after a hospitalization in which bowel rest and IV antibiotics were implemented. Patient says that since this episode she has not required any further hospitalizations prior to today for her diverticulitis. She also notes that she has had numerous colonoscopies her most recent one being in 2012. Other than diverticular disease she notes that no significant pathology was noted. Her current presentation began approximately 10 days ago when patient began experiencing abdominal pain. Because of her history of diverticulitis she does have antibiotics that she uses on a as needed basis provided by her PCP. She says that she was taking oral Flagyl. She says she was also prescribed oral Bactrim but has not been taking this medication. She notes that her abdominal pain became unbearable so she presented the emergency department. She notes that the pain is located primarily in the left lower quadrant but does radiate somewhat over to the right lower quadrant. She denies any nausea or vomiting but has had fever without shakes or chills. She denies any palliative or prov ocative factors. Patient does note she has had a bowel movement in the past 24 hours. She denies any bright red blood per rectum or hematochezia. In the emergency department the patient had labs and imaging which independently reviewed. She did have a chest x-ray that was negative for pneumonia. She also had a CT scan of the abdomen and pelvis that showed inflammatory changes in the descending colon near the junction with the transverse colon above at the splenic flexure notes felt to be compatible diverticulitis there is no evidence of abscess or perforation. Her appendix appeared normal on this scan. Inflammatory changes were also noted in the region of the sigmoid colon raising concern for an additional foci of diverticulitis. Labs including CBC were white blood cell count was 12.3. Hemoglobin, hematocrit, and platelet count were within normal range. Chemistry profile showed sodium, potassium, BUN, and creatinine were within normal range. Lactic acid level slightly elevated at 2.3. There were no significant elevation of LFTs or lipase. Urinalysis was not indicative of infection. A Covid test was performed and was noted to be negative. At time of interview the patient is resting comfortably in bed in no distress. Allergies Allergy/AdvReac Type Severity Reaction Status Date / Time Quinolones Allergy Mild Unknown Verified 12/17/20 21:06 clindamycin AdvReac Unknown hives from Verified 12/17/20 21:06 oral form levofloxacin AdvReac Unknown joint pain Verified 12/17/20 21:06 Penicillins AdvReac Unknown Unknown Verified 12/17/20 21:06 Home Medications Medication Instructions Recorded Confirmed Type cetirizine 10 mg capsule (Zyrtec) 10 mg PO DAILY 02/27/19 12/17/20 History azelastine 205.5 mcg (0.15 %) 2 spray INTRANASAL DAILY #30 ml 10/23/20 12/17/20 Rx nasal spray hydrocodone-homatropine 5 mg-1.5 5 ml PO Q6H PRN #473 ml 11/20/20 12/17/20 Rx mg/5 mL oral syrup clotrimazole 10 mg fauzia 10 mg MUCOUS MEMBRANE TID PRN #90 12/10/20 12/17/20 Rx tab metronidazole 500 mg tablet 500 mg PO TID 12/17/20 12/17/20 History sulfamethoxazole 800 1 tab PO BID 12/17/20 12/17/20 History mg-trimethoprim 160 mg tablet Patient History Medical History Acute diverticulitis Allergic rhinitis Asthma Surgical History History of colon surgery History of colonoscopy History of tonsillectomy and adenoidectomy Family History Mother Benign colon polyp Osteoporosis Aunt Colon cancer Osteoporosis Grandmother (Maternal) Colon cancer Father Congenital heart disease Diabetes Denies family history of Ovarian cancer Breast cancer Social History Smoking Status: Never smoker Hx Alcohol Use: No Hx Substance Use: No Preferred Language: Georgian Communication Ability: Effective 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 Beliefs That Will Affect Care: None marital status: Current Living Situation: Spouse Other Information That Helps Us Care for You: No Feels Safe at Home: Yes Safety Concerns: Feels Safe At This Time Assistive Devices: Glasses Review of Systems Constitutional: + fever; no chills Eyes: no diplopia Ear, Nose, Mouth, Throat: no ear pain Respiratory: no cough and no dyspnea Cardiovascular: no chest pain Gastrointestinal: + abdominal pain; no nausea and no vomiting Musculoskeletal: no back pain Integumentary: no rash Neurologic: no localized weakness Physical Exam Constitutional: well developed and well nourished; no acute distress Eyes: no conjunctival abnormality ENMT: Ears: no hearing impairment Mouth: no oropharynx abnormality Neck: trachea midline Respiratory: normal respiratory effort; no respiratory distress and no labored breathing Cardiovascular: Rate/Rhythm: regular rate and regular rhythm Gastrointestinal (Abdomen): Abdomen is soft and nondistended. Bowel sounds are present. Patient did have pain with palpation in the right lower quadrant but to a greater degree the left lower quadrant. There is no rebound tenderness or guarding. Musculoskeletal: No calf tenderness Skin: no rashes Neurologic: moves all extremities Psychiatric: A+Ox3, euthymic affect Results & Data ([facility]) Vital Signs (Past 12 Hours) Vital Signs Temp Pulse Pulse Resp BP BP Pulse Ox 12/18/20 02:10 37.7 C H 106 H 22 155/70 H 98 12/18/20 01:37 37.0 C 12/18/20 00:32 36.8 C 12/18/20 00:30 100 H 15 129/72 95 12/18/20 00:00 99 H 18 127/73 94 12/17/20 23:30 105 H 21 127/79 95 12/17/20 23:00 106 H 21 126/71 94 12/17/20 22:40 38.9 C H 12/17/20 22:34 97 12/17/20 22:19 20 95 12/17/20 21:30 126 H 25 H 152/100 H 93 12/17/20 21:10 39.6 C H 138 H 18 146/106 H 93 12/17/20 21:00 145 H 26 H 146/106 H 93 12/17/20 20:53 148 H 26 H 96 PG Care Time/CCT Total # of Minutes Spent Total Time Spent with Patient: Total time spent is greater than 50% in coordination of care (as documented) at patient's floor/unit and/or counseling patient: Coding Level of Care Code 49773 Inpt Consult Level 5 Diagnoses Diverticulitis K57.92
[2020-12-18 05:33] LABS: Hematocrit (blood only) 35.1 % (37-47); Hemoglobin 11.7 g/dL (12.0-16.0); Mean Corpuscular Hemoglobin 28.8 pg (25-34); Mean Corpuscular Hgb Conc 33.3 g/dL (32-36); Mean Corpuscular Volume 86.5 fL (80-100); Mean Platelet Volume 9.6 fL (7.4-10.4); Platelet Count 306 K/uL (130-400); RDW Coefficient of Variation 12.8 % (11.5-14.5); Red Blood Count 4.06 M/uL (4.2-5.4); White Blood Count 15.95 K/uL (4.8-10.8)
[2020-12-18 05:48] LABS: Basophils # (auto) 0.01 K/uL (0-0.2); Basophils % (auto) 0.1 %; Eosinophils # (auto) 0.03 K/uL (0-0.5); Eosinophils % (auto) 0.2 %; Immature Granulocytes # (auto) 0.03 K/uL (0.00-0.02); Immature Granulocytes % (auto) 0.2 %; Lymphocytes # (auto) 0.81 K/uL (1.2-3.4); Lymphocytes % (auto) 5.1 %; Monocytes # (auto) 0.87 K/uL (0.11-0.59); Monocytes % (auto) 5.5 %; Neutrophils % (auto) 88.9 %; RBC Morphology Unremarkable
[2020-12-18 06:04] LABS: BUN Creatinine Ratio 17.5 (10-20); Calcium 7.7 mg/dl (8.5-10.1); Creatinine Clr Calc Pharmacy 99.5 ml/min; Est GFR (African American) 95.1 ml/min; Est GFR (Non-African American) 82.1 ml/min; Potassium 4.3 mmol/L (3.5-5.1)
[2020-12-18] MEDS: MoRPHine SULFATE 2 MG/ML CARP IV PRN ×3 (06:09→18:40)
[2020-12-18] MEDS: ACETAMINOPHEN 325 MG TAB PO PRN ×3 (06:10→18:40)
--- NOTE | 2020-12-18 07:31 | XRay Report ---
XR chest 1V portable INDICATION: MN ^sepsis . TECHNIQUE: Single frontal radiograph of the chest was obtained. Comparison: None available at the time of this dictation. FINDINGS: No lines and tubes are seen. The cardiomediastinal silhouette is normal. Bibasilar atelectasis is not ed. No evidence of pleural effusion or pneumothorax. IMPRESSION: Bibasilar atelectasis without definite airspace disease to suggest pneumonia. ACT 112: Negative or not required by law. Electronically signed by: Gary Araujo M.D. 12/18/2020 7:30 AM
[2020-12-18] MEDS: AZELASTINE HCL 0.1% NASAL 200 SPRAYS/27,400 MCG BTL SCH (08:41)
[2020-12-18] MEDS: CETIRIZINE HCL 10 MG TABLET PO SCH (08:41)
[2020-12-18] MEDS: POLYETHYLENE (MIRALAX) 17 GM PACK PO SCH (08:41)
--- NOTE | 2020-12-18 08:45 | CT Scan Report ---
CT abdomen pelvis veno w con CLINICAL INDICATION: MN ^LABS C5 ^lower abdo pain, h/o diverticulitis, septic. TECHNIQUE: Helical axial images of the abdomen and pelvis were obtained and displayed. Automated dose lowering techniques and/or adjustment according to patient size were utilized for this exam. This e xam was performed with intravenous contrast. COMPARISON: None available at the time of this dictation. FINDINGS: Lower chest: No acute abnormality Liver: Unremarkable. No focal lesions are seen. Gallbladder and biliary tree: Patient is status post cholecystectomy. No intra- or extrahepatic bilia ry ductal dilation. Pancreas: Unremarkable, no focal lesions. Spleen: Unremarkable. Adrenals: Unremarkable. Kidneys and ureters: Subcentimeter hypodensities are too small to characterize. Bladder: Unremarkable. Reproductive organs: Bilateral hypodensities are seen in the adnexa compatible with cysts or follicle s. Bowel: Numerous diverticula are seen. There is pericolonic fat stranding in the splenic flexure and i n the sigmoid colon. There are dilated loops of bowel in the left upper quadrant up to 3.8 cm, which may be reactive to surrounding inflammation. Lymph nodes Retroperitoneal: Unremarkable. Mesenteric: Unremarkable. Pelvic: Unremarkable. Peritoneum: Normal Vessels: Atherosclerotic calcifications are seen. Abdominal wall: Unremarkable. Bones: Degenerative changes in the visualized spine. IMPRESSION: 1. Findings are compatible with acute diverticulitis without evidence of perforation or abscess. 2. Ileus of multiple small bowel loops which is likely reactive to adjacent inflammation. ACT 112: Negative or not required by law. Electronically signed by: Gary Araujo M.D. 12/18/2020 8:44 AM
[2020-12-18] MEDS ORDERED: CEFEPIME 1,000 MG in SYRINGE 0 ML IV SCH (10:00)
--- NOTE | 2020-12-18 10:56 | Hospitalist Progress Note ---
Date of Service December 18, 2020 Assessment & Plan (1) Acute diverticulitis: Plan: 60yo female with history of diverticulitis presenting with sepsis syndrome secondary to acute diverticulitis with focal ileus. Patient febrile, tachycardic, tachypneic, WBC=12.3, initial lactic acid=3.6. Elevated procalcitonin as well at 0.83. CT of the abdomen suggestive of two foci of acute diverticulitis as well as focal ileus. No perforation or abscess. Abdomen was tender to palpation without obvious distention, rebound/guarding or peritoneal signs. - Cefepime and Flagyl -surgery is following, do not anticipate need for surgical intervention at this time but keep NPO except ice chips and sips of water with meds -Morphine as needed for pain control -Zofran as needed for nausea (2) Asthma: Plan: Patient with longstanding history of asthma. She has faint end-expiratory wheezing noted on exam. -Albuterol as needed Patient mentioned some recent DOW noted this past weekend while in [place]. Patient became short of breath after walking a short distance. Thought maybe secondary to being inactive during Covid. No chest pain. Troponin is unremarkable. Patient is scheduled for a routine physical in early February and will mention this issue to her PCP. (3) Allergic rhinitis: Plan: Patient reports longstanding history of chronic cough. She has been seen by Allergy/Immunology as well as Pulmonary for this condition. She states she takes Hycodin cough medicine qHS -Continue Hycodin as needed -Continue Azelastine and Zyrtec -? utility of PFT testing in the outpatient setting? Patient has asthma, also is a former smoker appx 17 pack/year history. ?COPD component to cough vs upper airway pathology Admission and Anticipated Discharge Date Admission Date: December 18, 2020 Subjective Patient seen in the afternoon she is in a holding bed in the ICU for med telemetry. The patient is persistently febrile with abdominal pain. She does have a history of diverticulitis. She did fail outpatient therapy but was slightly noncompliant only taking metronidazole and not Bactrim that she was prescribed in addition to it. Surgery evaluate the patient feels that she is a nonsurgical candidate however will continue to have watchful waiting while we administer antibiotics. Recommending 3 to 4 days of intravenous antibiotics at this time she is on cefepime and metronidazole due to penicillin allergy Review of Systems Review of Systems: Moderate distress and fatigue no headache, no visual changes no speech or swallowing issues no chest pain, pressure or palpitations no shortness of breath, cough or wheezes Persistent left-sided abdominal pain, with mild nausea but no vomiting, some loose bowel movements no dysuria, hematuria or frequency no focal joint pain or swelling no back pain, CVA tenderness or radicular pain no bruising, bleeding or rashes no focal signs of weakness or numbness or altered sensation no complaints of anxiety or depression.. Physical Exam Physical Exam: The patient appeared well nourished and normally developed. Vital signs as documented. Head exam is normocephalic atraumatic Neck is without JVD, thyromegaly, or carotid bruits. Lungs are clear to auscultation, no focal loss of breath sounds Cardiac exam, Rhythm is regular.. No murmurs, rubs or gallops. Abdominal exam reveals normal bowel sounds, soft left sided tenderness Extremities are nonedematous and both pedal pulses are present Neurologic exam is alert and oriented, no focal loss of strength or sensation Skin is without bruises or rashes Psychologically is with lethargy but without concerns for anxiety or depression Results & Data Results & Data ([facility]) Vital Signs (Past 12 Hours) Vital Signs Temp Pulse Pulse Resp BP BP Pulse Ox 12/18/20 07:45 98.1 F 86 16 116/66 95 12/18/20 02:10 99.9 F H 106 H 22 155/70 H 98 12/18/20 01:37 98.6 F 12/18/20 00:32 98.2 F 12/18/20 00:30 100 H 15 129/72 95 12/18/20 00:00 99 H 18 127/73 94 12/17/20 23:30 105 H 21 127/79 95 12/17/20 23:00 106 H 21 126/71 94 PG Care Time/CCT Total # of Minutes Spent Total Time Spent with Patient: Total time spent is greater than 50% in coordination of care (as documented) at patient's floor/unit and/or counseling patient: Coding Level of Care Code 14118 Subseq Hosp Care Lvl 2 Diagnoses Acute diverticulitis K57.92 Asthma J45.909 Allergic rhinitis J30.9
[2020-12-18] MEDS: KETOROLAC TROMETHAMINE 15 MG/ML VIAL IV PRN (15:42)
[2020-12-18] MEDS: CEFEPIME 2,000 MG in SYRINGE 0 ML IV SCH (17:50)
[2020-12-19] MEDS: MoRPHine SULFATE 2 MG/ML CARP IV PRN ×3 (01:44→14:47)
[2020-12-19] MEDS: ACETAMINOPHEN 325 MG TAB PO PRN (01:44)
[2020-12-19] MEDS: metroNIDAZOLE 500 MG/100 ML BAG IV SCH ×3 (01:46→19:30)
[2020-12-19] MEDS: CEFEPIME 2,000 MG in SYRINGE 0 ML IV SCH ×3 (02:53→17:54)
[2020-12-19] MEDS: KETOROLAC TROMETHAMINE 15 MG/ML VIAL IV PRN (06:14)
--- NOTE | 2020-12-19 08:25 | Surgery Progress Note ---
Date of Service December 19, 2020 Assessment & Plan (1) Diverticulitis: Plan: slightly improved clinically. would keep npo/ice chips still afebrile currently continue IV antibiotics no current indication for surgical intervention. will continue to follow closely [facility] surgeons covering for weekend. Admission and Anticipated Discharge Date Admission Date: December 18, 2020 Subjective pt seen. slightly better than yesterday . still with moderate LLQ pain. Physical Exam Constitutional: WD/WN, vitals as above no acute distress and not ill appearing Eyes: PERRL, conjunctivae normal, anicteric sclerae EOM intact bilaterally ENMT: external ear and nose normal, oropharynx normal Ears: no hearing impairment Neck: trachea midline, no thyromegaly Respiratory: normal respiratory effort; no respiratory distress and does not use accessory muscles Cardiovascular: Rate/Rhythm: regular rate and regular rhythm Gastrointestinal (Abdomen): soft. +LLQ ttp. no peritonitis. Skin: no rashes, warm and dry Psychiatric: Orientation: alert, oriented x 3 and cooperative Results & Data ([facility]) Vital Signs (Past 12 Hours) Vital Signs Temp Pulse Pulse Resp BP Pulse Ox 12/19/20 08:03 95 H 12/19/20 08:02 36.8 C 81 20 120/75 95 12/19/20 04:52 86 12/19/20 03:00 37.4 C 95 H 18 137/72 96 12/18/20 23:32 37.1 C 87 20 141/71 H 98 PG Care Time/CCT Total # of Minutes Spent Total Time Spent with Patient: Total time spent is greater than 50% in coordination of care (as documented) at patient's floor/unit and/or counseling patient: Coding Level of Care Code 39438 Subseq Hosp Care Lvl 3 Diagnoses Diverticulitis K57.92
[2020-12-19 08:46] LABS: Basophils # (auto) 0.02 K/uL (0-0.2); Basophils % (auto) 0.2 %; Eosinophils # (auto) 0.13 K/uL (0-0.5); Eosinophils % (auto) 1.3 %; Hematocrit (blood only) 34.6 % (37-47); Hemoglobin 11.4 g/dL (12.0-16.0); Immature Granulocytes # (auto) 0.02 K/uL (0.00-0.02); Immature Granulocytes % (auto) 0.2 %; Lymphocytes # (auto) 2.05 K/uL (1.2-3.4); Mean Corpuscular Hemoglobin 28.9 pg (25-34); Mean Corpuscular Hgb Conc 32.9 g/dL (32-36); Mean Corpuscular Volume 87.6 fL (80-100); Mean Platelet Volume 9.8 fL (7.4-10.4); Monocytes # (auto) 0.46 K/uL (0.11-0.59); Monocytes % (auto) 4.5 %; Neutrophils # (auto) 7.56 K/uL (1.4-6.5); Neutrophils % (auto) 73.8 %; Platelet Count 271 K/uL (130-400); RDW Coefficient of Variation 12.9 % (11.5-14.5); RDW Standard Deviation 41.5 fL (36.4-46.3); Red Blood Count 3.95 M/uL (4.2-5.4); White Blood Count 10.24 K/uL (4.8-10.8)
[2020-12-19 09:04] LABS: BUN Creatinine Ratio 19.2 (10-20); Calcium 8.4 mg/dl (8.5-10.1); Creatinine Clr Calc Pharmacy 128.3 ml/min; Est GFR (African American) 112.8 ml/min; Est GFR (Non-African American) 97.3 ml/min; Magnesium 2.7 mg/dl (1.8-2.4); Potassium 3.7 mmol/L (3.5-5.1)
[2020-12-19] MEDS: LACTATED RINGER'S 1,000 ML IV SCH ×2 (09:04→17:20)
[2020-12-19] MEDS: AZELASTINE HCL 0.1% NASAL 200 SPRAYS/27,400 MCG BTL SCH (09:04)
[2020-12-19] MEDS: CETIRIZINE HCL 10 MG TABLET PO SCH (09:04)
[2020-12-19] MEDS: POLYETHYLENE (MIRALAX) 17 GM PACK PO SCH (09:04)
--- NOTE | 2020-12-19 12:16 | Hospitalist Progress Note ---
Date of Service December 19, 2020 Assessment & Plan (1) Acute diverticulitis: Plan: 60yo female with history of diverticulitis presenting with sepsis syndrome secondary to acute diverticulitis with focal ileus. Patient febrile, tachycardic, tachypneic, WBC=12.3, initial lactic acid=3.6. Elevated procalcitonin as well at 0.83. CT of the abdomen suggestive of two foci of acute diverticulitis as well as focal ileus. No perforation or abscess. Abdomen was tender to palpation without obvious distention, rebound/guarding or peritoneal signs. - Cefepime and Flagyl if patient progresses to worsen we will reimage her abdomen and consider alteration of cefepime and Flagyl to possible Zosyn given her low level penicillin allergy -surgery is following, do not anticipate need for surgical intervention at this time patient was having a significant headache feels is from caffeine withdrawal did offer the patient some clear liquids and caffeine hopefully not exacerbate her GI symptoms of does will make strict n.p.o. again -Morphine as needed for pain control -Zofran as needed for nausea (2) Asthma: Plan: Patient with longstanding history of asthma. Stable at this time -Albuterol as needed Patient mentioned some recent DOW noted this past weekend while in [place]. Patient became short of breath after walking a short distance. Then the patient mentions exertional diaphoresis and nausea which is reproducible certainly now making more concern for possible cardiac issues would recommend discussion with PCP after discharge (3) Allergic rhinitis: Plan: Patient reports longstanding history of chronic cough. She has been seen by Allergy/Immunology as well as Pulmonary for this condition. She states she takes Hycodin cough medicine qHS -Continue Hycodin as needed -Continue Azelastine and Zyrtec -? utility of PFT testing in the outpatient setting? Patient has asthma, also is a former smoker appx 17 pack/year history. ?COPD component to cough vs upper airway pathology Admission and Anticipated Discharge Date Admission Date: December 18, 2020 Subjective pt does not feel much better today, she still has pain and fever. seems to be moving in the right direction, pt now gives a history of pre illness exertional excess diaphoresis and nausea that is reproducible, none here but certainly will need addressed after she convalescences from this illness Review of Systems Review of Systems: Mild distress and fatigue no headache, no visual changes no speech or swallowing issues no chest pain, pressure or palpitations no shortness of breath, cough or wheezes Persistent left-sided abdominal pain worse with movement, no nausea or vomiting, no bowel movement some flatus no dysuria, hematuria or frequency no focal joint pain or swelling no back pain, CVA tenderness or radicular pain no bruising, bleeding or rashes no focal signs of weakness or numbness or altered sensation no complaints of anxiety or depression.. Physical Exam Physical Exam: The patient appeared well nourished and normally developed. Vital signs as documented. Head exam is normocephalic atraumatic Neck is without JVD, thyromegaly, or carotid bruits. Lungs are clear to auscultation, no focal loss of breath sounds Cardiac exam, Rhythm is regular.. No murmurs, rubs or gallops. Abdominal exam reveals normal bowel sounds, patient is tender mostly in the left lower quadrant no rebound no guarding maybe some left CVA angle tenderness also Extremities are nonedematous and both pedal pulses are present Neurologic exam is alert and oriented, no focal loss of strength or sensation Skin is without bruises or rashes Psychologically is without concerns for anxiety or depression Results & Data Results & Data ([facility]) Vital Signs (Past 12 Hours) Vital Signs Temp Pulse Pulse Resp BP Pulse Ox 12/19/20 12:04 99.1 F 88 20 134/88 91 12/19/20 08:03 95 H 12/19/20 08:02 98.2 F 81 20 120/75 95 12/19/20 04:52 86 12/19/20 03:00 99.3 F 95 H 18 137/72 96 PG Care Time/CCT Total # of Minutes Spent Total Time Spent with Patient: Total time spent is greater than 50% in coordination of care (as documented) at patient's floor/unit and/or counseling patient: Coding Level of Care Code 56162 Subseq Hosp Care Lvl 2 Diagnoses Acute diverticulitis K57.92 Asthma J45.909 Allergic rhinitis J30.9
[2020-12-19] MEDS: traMADol HCL 50 MG TABLET PO PRN ×2 (13:06→19:32)
--- NOTE | 2020-12-19 16:51 | Electrocardiogram Report ---
Test Reason : Blood Pressure : / mmHG Vent. Rate : 146 BPM Atrial Rate : 146 BPM P-R Int : 136 ms QRS Dur : 082 ms QT Int : 260 ms P-R-T Axes : -02 043 -05 degrees QTc Int : 405 ms Sinus tachycardia Abnormal ECG When compared with ECG of 24-FEB-2011 12:13, Vent. rate has increased BY 85 BPM QRS duration has decreased T wave inversion now evident in Inferior leads Confirmed by Eddy Myrick ([id number]) on 12/19/2020 4:51:21 PM Referred By: REFERRED SELF Confirmed By:Jose Maria Myrick
[2020-12-19] MEDS: MoRPHine SULFATE 4 MG/ML 1 ML CARP\\VIAL IV PRN (23:35)
[2020-12-20] MEDS: metroNIDAZOLE 500 MG/100 ML BAG IV SCH ×3 (02:00→18:32)
[2020-12-20] MEDS: CEFEPIME 2,000 MG in SYRINGE 0 ML IV SCH ×3 (02:00→17:47)
[2020-12-20] MEDS: LACTATED RINGER'S 1,000 ML IV SCH ×2 (02:01→10:11)
[2020-12-20 07:04] LABS: Basophils # (auto) 0.01 K/uL (0-0.2); Basophils % (auto) 0.1 %; Eosinophils # (auto) 0.13 K/uL (0-0.5); Eosinophils % (auto) 1.9 %; Hematocrit (blood only) 34.6 % (37-47); Hemoglobin 11.6 g/dL (12.0-16.0); Immature Granulocytes # (auto) 0.01 K/uL (0.00-0.02); Immature Granulocytes % (auto) 0.1 %; Lymphocytes # (auto) 1.51 K/uL (1.2-3.4); Lymphocytes % (auto) 22.5 %; Mean Corpuscular Hemoglobin 28.9 pg (25-34); Mean Corpuscular Hgb Conc 33.5 g/dL (32-36); Mean Corpuscular Volume 86.1 fL (80-100); Mean Platelet Volume 10.2 fL (7.4-10.4); Monocytes # (auto) 0.46 K/uL (0.11-0.59); Monocytes % (auto) 6.9 %; Neutrophils # (auto) 4.58 K/uL (1.4-6.5); Neutrophils % (auto) 68.5 %; Platelet Count 255 K/uL (130-400); RDW Coefficient of Variation 12.6 % (11.5-14.5); RDW Standard Deviation 40.2 fL (36.4-46.3); Red Blood Count 4.02 M/uL (4.2-5.4)
[2020-12-20] MEDS: CETIRIZINE HCL 10 MG TABLET PO SCH (09:22)
[2020-12-20] MEDS: POLYETHYLENE (MIRALAX) 17 GM PACK PO SCH (09:22)
[2020-12-20] MEDS: AZELASTINE HCL 0.1% NASAL 200 SPRAYS/27,400 MCG BTL SCH ×2 (09:23→10:10)
--- NOTE | 2020-12-20 11:50 | Surgery Progress Note ---
Date of Service December 20, 2020 Assessment & Plan (1) Diverticulitis: Plan: F/U diverticulitis, pt is doing better, no fever, normal WBC continue iv antibiotic treatment, OOB clear diet, will F/U Admission and Anticipated Discharge Date Admission Date: December 18, 2020 Subjective pt does not feel much better today, she still has pain and fever. seems to be moving in the right direction, pt now gives a history of pre illness exertional excess diaphoresis and nausea that is reproducible, none here but certainly will need addressed after she convalescences from this illness 12/20/2020 11:49AM pt said she feels better today, less abdominal pain, some diarrhea, no bloody stool, T 36.7, WBC 6.7 Physical Exam Constitutional: WD/WN, vitals as above Eyes: PERRL, conjunctivae normal, anicteric sclerae Neck: trachea midline, no thyromegaly Respiratory: normal respiratory effort, lungs clear to auscultation Cardiovascular: RRR, no murmur, no edema Gastrointestinal (Abdomen): soft, mild tenderness at LLQ, no rebound pain, no distend, BS + Neurologic: patellar DTR's 2+ bilat, sensation intact Psychiatric: A+Ox3, euthymic affect Results & Data ([facility]) Vital Signs (Past 12 Hours) Vital Signs Temp Pulse Pulse Resp BP Pulse Ox 12/20/20 11:42 36.7 C 84 16 179/102 H 95 12/20/20 07:50 37.3 C 92 H 16 136/83 95 12/20/20 04:01 36.9 C 90 18 140/90 96 12/20/20 03:51 81 Laboratory Results Abnormal lab results 12/20/20 Range/Units 06:10 RBC 4.02 L (4.2-5.4) M/uL Hgb 11.6 L (12.0-16.0) g/dL Hct 34.6 L (37-47) %
[2020-12-20] MEDS: HYDROcodone/HOMATROPINE SYRUP 5MG/1.5MG 5ML UDP PO PRN ×2 (13:51→22:01)
--- NOTE | 2020-12-20 15:33 | Hospitalist Progress Note ---
Date of Service December 20, 2020 Assessment & Plan (1) Acute diverticulitis: Plan: 60yo female with history of diverticulitis presenting with sepsis syndrome secondary to acute diverticulitis with focal ileus. Patient febrile, tachycardic, tachypneic, WBC=12.3, initial lactic acid=3.6. Elevated procalcitonin as well at 0.83. CT of the abdomen suggestive of two foci of acute diverticulitis as well as focal ileus. No perforation or abscess. Abdomen was tender to palpation without obvious distention, rebound/guarding or peritoneal signs. - Cefepime and Flagyl -Morphine as needed for pain control -Zofran as needed for nausea Tolerating advancing diet (2) Asthma: Plan: Patient with longstanding history of asthma. Remains stable at this time -Albuterol as needed Patient mentioned some recent DOW noted this past weekend while in [place]. Patient became short of breath after walking a short distance. Then the patient mentions exertional diaphoresis and nausea which is reproducible certainly now making more concern for possible cardiac issues would recommend discussion with PCP after discharge (3) Allergic rhinitis: Plan: Patient reports longstanding history of chronic cough. She has been seen by Allergy/Immunology as well as Pulmonary for this condition. She states she takes Hycodin cough medicine qHS -Continue Hycodin as needed -Continue Azelastine and Zyrtec -? utility of PFT testing in the outpatient setting? Patient has asthma, also is a former smoker appx 17 pack/year history. ?COPD component to cough vs upper airway pathology (4) Hypertension: Plan: Patient's blood pressure is elevated likely result of persistent continuous IV fluids will stop IV fluids. Concern of blood pressure elevation with recent history of dyspnea and nausea will have as needed hydralazine available Admission and Anticipated Discharge Date Admission Date: December 18, 2020 Subjective Patient looks better today she still has some abdominal pain but much less headache is improved she is tolerant of her clear liquid diet considering increasing to more substantial diet having increased frequency of stools mostly diarrhea nature Review of Systems Review of Systems: Mild distress and fatigue no headache, no visual changes no speech or swallowing issues no chest pain, pressure or palpitations no shortness of breath, cough or wheezes Sided abdominal pain, no nausea or vomiting, now having loose bowel movements no dysuria, hematuria or frequency no focal joint pain or swelling no back pain, CVA tenderness or radicular pain no bruising, bleeding or rashes no focal signs of weakness or numbness or altered sensation no complaints of anxiety or depression.. Physical Exam Physical Exam: The patient appeared well nourished and normally developed. Vital signs as documented. Head exam is normocephalic atraumatic Neck is without JVD, thyromegaly, or carotid bruits. Lungs are clear to auscultation, no focal loss of breath sounds Cardiac exam, Rhythm is regular.. No murmurs, rubs or gallops. Abdominal exam reveals normal bowel sounds, patient is mildly tender in the left lower quadrant continues with no rebound no guarding Extremities are nonedematous and both pedal pulses are present Neurologic exam is alert and oriented, no focal loss of strength or sensation Skin is without bruises or rashes Psychologically is without concerns for anxiety or depression Results & Data Results & Data ([facility]) Vital Signs (Past 12 Hours) Vital Signs Temp Pulse Pulse Resp BP Pulse Ox 12/20/20 15:00 90 12/20/20 11:42 98.1 F 84 16 179/102 H 95 12/20/20 11:28 76 12/20/20 07:50 99.1 F 92 H 16 136/83 95 12/20/20 04:01 98.4 F 90 18 140/90 96 12/20/20 03:51 81 PG Care Time/CCT Total # of Minutes Spent Total Time Spent with Patient: Total time spent is greater than 50% in coordination of care (as documented) at patient's floor/unit and/or counseling patient: Coding Level of Care Code 09605 Subseq Hosp Care Lvl 2 Diagnoses Acute diverticulitis K57.92 Asthma J45.909 Allergic rhinitis J30.9 Hypertension I10
[2020-12-20] MEDS ORDERED: hydrALAZINE HCL 20 MG/ML VIAL IV PRN (15:35)
[2020-12-20] MEDS: LANSOPRAZOLE 30 MG SOLTAB PO SCH (22:01)
[2020-12-20] MEDS: ACETAMINOPHEN 325 MG TAB PO PRN (23:55)
[2020-12-21] MEDS: CEFEPIME 2,000 MG in SYRINGE 0 ML IV SCH ×2 (02:53→10:20)
[2020-12-21] MEDS: metroNIDAZOLE 500 MG/100 ML BAG IV SCH ×2 (02:54→10:20)
[2020-12-21] MEDS: LANSOPRAZOLE 30 MG SOLTAB PO SCH (07:37)
[2020-12-21] MEDS: CETIRIZINE HCL 10 MG TABLET PO SCH (07:37)
[2020-12-21] MEDS: POLYETHYLENE (MIRALAX) 17 GM PACK PO SCH (07:37)
[2020-12-21] MEDS: AZELASTINE HCL 0.1% NASAL 200 SPRAYS/27,400 MCG BTL SCH (07:37)
[2020-12-21] MEDS: HYDROcodone/HOMATROPINE SYRUP 5MG/1.5MG 5ML UDP PO PRN (10:34)
[2020-12-21] MEDS ORDERED: metroNIDAZOLE 500 MG TAB PO ONE (11:30)
--- NOTE | 2020-12-21 12:11 | Surgery Progress Note ---
Date of Service December 21, 2020 Assessment & Plan (1) Diverticulitis: Plan: F/U diverticulitis, pt is doing better, no fever, normal WBC continue iv antibiotic treatment, OOB clear diet, will F/U 12/21/2020 12:10pm doing better, tolerated diet, pt can be discharged today, F/U her PCP, thanks, please call with questions, Admission and Anticipated Discharge Date Admission Date: December 18, 2020 Subjective Patient looks better today she still has some abdominal pain but much less headache is improved she is tolerant of her clear liquid diet considering increasing to more substantial diet having increased frequency of stools mostly diarrhea nature 12/21/2020 12:10PM pt doing better, no abdominal pain, no nausea, no vomiting, no fever, Physical Exam Constitutional: WD/WN, vitals as above Eyes: PERRL, conjunctivae normal, anicteric sclerae Neck: trachea midline, no thyromegaly Respiratory: normal respiratory effort, lungs clear to auscultation Cardiovascular: RRR, no murmur, no edema Gastrointestinal (Abdomen): soft, NT, ND, BS + Neurologic: patellar DTR's 2+ bilat, sensation intact Psychiatric: A+Ox3, euthymic affect Results & Data ([facility]) Vital Signs (Past 12 Hours) Vital Signs Temp Pulse Pulse Resp BP Pulse Ox 12/21/20 07:57 36.7 C 87 16 159/93 H 97 12/21/20 02:57 36.9 C 78 20 147/85 H 97 12/21/20 01:07 84
--- NOTE | 2020-12-21 16:33 | Discharge Summary ---
Date of Service December 21, 2020 Admission HPI Per Admitting Provider Jeniffer Phoenix is a 60yo female with history of Diverticulitis (diagnosed in 2005, prior perforation which resolved with supportive care - no history of surgical intervention) presenting with acute diverticulitis. Patient reports developing lower abdominal discomfort 10 days ago as well as bloating. She has a prescription for Flagyl and Bactrim at home which she is to take should she develop acute diverticulitis symptoms. She took only Flagyl x 10 days. Symptoms persisted. She was seen by her PCP this afternoon - prescribed additional course of Flagyl x 10 days as well as Bactrim. Patient went home and took her antibiotics x 1 dose this afternoon. Then developed body aches, nausea, chills and rigors. She called the Nurse-line and was instructed to come to the ER. Additionally she has lower abdominal discomfort, bloating, non-bloody diarrhea and feeling of abdominal fullness. Fever of 101.3 prior to arrival, 103 by EMS. Upon arrival to the ER patient febrile at 38.9, tachycardic at 126bpm, hypertensive at 152/100, tachypneic at 25 breaths/min, saturating 93% on RA. She had an elevated lactic acid level of 3.6. ER Course: Morphine 6mg + 6mg IV, Magnesium x 1gm, NSS x 3L, Tylenol 500mg, Zofran 4mg IV, Cefepime 2gm, Vancomycin 2250mg Principal Diagnosis Sepsis resolved acute diverticulitis, exertional diaphoresis Discharge Exam The patient appeared well Vital signs as documented. Lungs are clear to auscultation and appear unlabored Cardiac exam, Rhythm is regular.. No murmurs, rubs or gallops. Abdominal exam reveals normal bowel sounds, soft non tender, no masses Extremities are nonedematous and both pedal pulses are normal. Neurologic exam is alert and oriented, no focal loss of strength or sensation Skin is without bruises or rashes Psychologically is without concerns for anxiety or depression. Discharge Data Allergies Allergy/AdvReac Type Severity Reaction Status Date / Time Quinolones Allergy Mild Unknown Verified 12/17/20 21:06 clindamycin AdvReac Unknown hives from Verified 12/17/20 21:06 oral form levofloxacin AdvReac Unknown joint pain Verified 12/17/20 21:06 Penicillins AdvReac Unknown Unknown Verified 12/17/20 21:06 Consultations 12/17/20 22:54 ED Decision to Admit Stat 12/18/20 00:06 Consult General Surgery Routine Ordered Studies 12/17/20 21:12 CT abdomen pelvis veno w con Urgent Hospital Course (1) Acute diverticulitis: 60yo female with history of diverticulitis presenting with sepsis syndrome secondary to acute diverticulitis with focal ileus. Patient febrile, tachycardic, tachypneic, WBC=12.3, initial lactic acid=3.6. Elevated procalcitonin as well at 0.83. CT of the abdomen suggestive of two foci of acute diverticulitis as well as focal ileus. No perforation or abscess. Abdomen was tender to palpation without obvious distention, rebound/guarding or peritoneal signs. - Cefepime and Flagyl transition to cefdinir Flagyl orally as an outpatient Will complete 10 days recommend consideration of outpatient colonoscopy in the future (2) Asthma: Patient with longstanding history of asthma. Remains stable at this time -Albuterol as needed Patient mentioned some recent DOW noted this past weekend while in [place]. Patient became short of breath after walking a short distance. Then the patient mentions exertional diaphoresis and nausea which is reproducible certai nly now making more concern for possible cardiac issues would recommend discussion with PCP after discharge (3) Allergic rhinitis: Patient reports longstanding history of chronic cough. She has been seen by Allergy/Immunology as well as Pulmonary for this condition. She states she takes Hycodin cough medicine qHS -Continue Hycodin as needed -Continue Azelastine and Zyrtec -? utility of PFT testing in the outpatient setting? Patient has asthma, also is a former smoker appx 17 pack/year history. ?COPD component to cough vs upper airway pathology (4) Hypertension: Patient's blood pressure is elevated likely result of persistent continuous IV fluids will stop IV fluids. Concern of blood pressure elevation with recent history of dyspnea and nausea will have as needed hydralazine available Total Time Total Time Spent Total Time Spent (In Minutes): It required greater than 30 minutes to prepare this patient for discharge, including a call to her home Discharge Plan Discharge Items Patient Disposition: Home - Self-Care Reason For Visit: ACUTE DIVERTICULITIS Discharge Diagnosis: sepsis resolved diverticulitis exertional disphoresis Activity: Resume your previous activity Non-emergency contact: Primary Care Provider Call non-emergency contact if: you have any medication questions, your symptoms worsen and you have a fever Follow-up/Referrals: German Richards MD [Primary Care Provider] - (PLEASE CALL YOUR PRIMARY CARE PROVIDER TO SET UP A FOLLOW-UP DISCHARGE APPOINTMENT WITHIN 7-10 DAYS.) Diet: Regular Addtl Attending Provider Instructions: please eat a low fiber diet for about a week, that would be to avoid vegetables unless cooked till soft after that you may return to a regular diet please follow up with Dr Richards and discuss your exertional symptoms, also consider having a colonoscopy in a few months after you have recovered from your diverticultis complete all of your antibiotics continue with good hydration Pending Studies at Discharge: No Stand-Alone Forms: [facility] [employer], Smoking Cessation Medications and DC Order Prescriptions: New cefdinir 300 mg capsule 300 mg PO BID 10 Days Qty: 20 RF: 0 Continued azelastine 205.5 mcg (0.15 %) spray,non-aerosol 2 spray intranasal DAILY Qty: 30 RF: 11 hydrocodone-homatropine 5-1.5 mg/5 mL syrup 5 ml PO Q6H PRN (Reason: cough) Qty: 473 RF: 0 Zyrtec 10 mg capsule 10 mg PO DAILY RF: 0 clotrimazole 10 mg fauzia 10 mg mucous membrane TID PRN (Reason: kandi) Qty: 90 RF: 2 metronidazole 500 mg tablet 500 mg PO TID Qty: 30 RF: 0 Discontinued sulfamethoxazole-trimethoprim 800-160 mg tablet 1 tab PO BID RF: 0 Discharge Orders: Discharge Order (Routine); Ordered 12/21/20 Ordered By: Román Hernnadez Admission Data Admit Date/Time: 12/18/20 00:06 Attending Provider: Román Hernandez Admit Provider: Winnie Squires Primary Care Provider: German Richards Other Providers: Winnie Squires ; Preston Mackey Other Interventions: Discharge Summary Assessment (RN) Last Done: 12/21/20 12:29 Coding Level of Care Code D/C DAY MANAGEMENT >30 MINS Diagnoses Acute diverticulitis K57.92 Asthma J45.909 Allergic rhinitis J30.9 Hypertension I10
== END 2020-12-21 13:20 | disposition home or self-care (01) | DRG 872 ==
LOC: ED 20:47 → SUATTDRO 12-18 00:06 → EDINP 12-18 00:06 → 1E 12-18 02:16 → 2W 12-18 18:34
DX: E87.2 Acidosis; K57.92 Diverticulitis of intestine, part unspecified, without perforation or abscess without bleeding; K56.7 Ileus, unspecified; A41.9 Sepsis, unspecified organism; J45.909 Unspecified asthma, uncomplicated; I10 Essential (primary) hypertension; Z88.8 Allergy status to other drugs, medicaments and biological substances

== ENCOUNTER 2021-01-21 14:23 | Inpatient (IN) ==
--- NOTE | 2021-01-21 16:37 | Emergency Department Note ---
Impression & Plan Sepsis, Diverticulitis, Lactic acidosis, Adverse reaction to sulfa antibiotic ED Provider Note NAME: KANCHAN CARTER AGE: 60 SEX: F : 1960 ARRIVES VIA: Walk-In INFORMANT: Patient, ED PROVIDER(S): Keyon Rodriguez MD Chief Complaint: Possible medication reaction, ongoing diverticulitis treatment. HPI: Patient does present due to concern for possible allergic reaction. The patient was seen here on Tuesday did have a CT which showed diverticulitis and the patient had a change in antibiotics from cefdinir to Bactrim. Patient states that she ate a scrambled egg and felt worse. Patient planes of some na usea headache and hip pain. Patient was discharged on December 21 due to concern for diverticulitis. And the patient does take Flagyl and Bactrim at home for acute diverticular symptoms. Patient did have an outpatient CT that was completed on Tuesday which did show possible recurrent mild diverticulitis without free air or abscess. This was completed on January 16. Patient had reported been on cefdinir for 30 days prior to transitioning to Bactrim and states that today this acutely change her symptoms were she felt short of breath with associated cough every time that she would inspire. Patient states that she has atypical diverticular symptoms and does not have pain but only complains of a fullness she describes as a wet towel being placed in her abdomen. Patient denies any rash. Patient has no other recent changes. Patient states that she felt improved with regard to her diverticular symptoms even since Tuesday. Patient has any prior history of DVT or PE. Patient does feel "panicked" but does not complain of a productive cough. Patient she has been compliant with her medications and did take some cough syrup last evening as she does suffer from chronic cough. ROS: See HPI for pertinent positives and negatives. A total of 10 systems were reviewed and otherwise negative. Past medical history: See below Surgical history: See below Social history: See below Physical Exam: GENERAL: Anxious in appearance. Nontoxic, wearing glasses and a mask. EYE EXAM: Normal conjunctiva. PERRL, no anisocoria and EOM's grossly intact w/o pain. NECK: Supple, no nuchal rigidity, no adenopathy, non-tender. No signs of meningismus. FROM of the neck with good chin to chest and neck extension. No stridor. LUNGS: Clear to auscultation. Normal chest wall mechanics. HEART: Tachycardic and regular, no MRG. ABDOMEN: Abdomen soft, non-tender, normo-active bowel sounds, no masses, no rebound or guarding. BACK: No CVA TTP. SKIN: No rashes and no bruising. UPPER EXTREMITIES: Upper extremities are grossly normal. LOWER EXTREMITIES: Grossly normal, no edema. NEURO EXAM: A&O x3, cranial nerves II-XII grossly intact, normal speech, moves all 4 extremities on command w/o issue. Differential diagnoses: Sepsis, UTI, pneumonia, metabolic, electrolyte abnormalities, cardiac sources, intracerebral event, toxicologic, neurologic, as well as other pathologies. Course: Patient was seen and evaluated the bedside. Full history physical exam was performed. EKG interpreted by me Sinus tachycardia, rate of 104, normal intervals, normal axis, T wave inversion in lead III not in contiguous leads. No ST changes. Imaging Studies: See Below Cardiac monitoring: An order was placed for continuous cardiac monitoring. The monitor shows a rate of 115 with tachycardic and regular rhythm. MDM: Patient does present due to concern for possible medication side effect the patient is febrile and tachycardic. The patient states that she was short of breath initially with the seems to have improved but does feel panicked. Patient did have antibiotics ordered patient did have CT angiography of the chest and CT abdomen pelvis completed along with blood cultures completed. Patient does have a white count of 20 procalcitonin is elevated. Urinalysis does not show evidence of obvious infection. Covid negative. CT angiography negative. CT does show persistent but improving diverticulitis. Given the patient's white count lactic acidosis procalcitonin even in light of the improvi ng diverticulitis believe the patient would benefit from admission. I did speak with the on-call hospitalist Dr. Vasquez and the patient was admitted to the medicine service. Past Med/Surg History Medical History Acute diverticulitis Allergic rhinitis Asthma Surgical History History of colon surgery History of colonoscopy History of tonsillectomy and adenoidectomy Family History Mother Benign colon polyp Osteoporosis Aunt Colon cancer Osteoporosis Grandmother (Maternal) Colon cancer Father Congenital heart disease Diabetes Denies family history of Ovarian cancer Breast cancer Social History Smoking Status: Former smoker Second Hand Exposure: No; Do You Dip or Chew Tobacco: No; Tobacco Cessation Education Requested by Patient: No Hx Alcohol Use: Yes Hx Substance Use: No Preferred Language: Amharic Communication Ability: Effective Criminal Justice Lawyer Required: No Beliefs That Will Affect Care: None marital status: Current Living Situation: Spouse Other Information That Helps Us Care for You: No Feels Safe at Home: Yes Safety Concerns: Feels Safe At This Time Assistive Devices: None Allergies Allergies Allergy/AdvReac Type Severity Reaction Status Date / Time Quinolones Allergy Mild Unknown Verified 01/21/21 17:18 ciprofloxacin AdvReac Intermediate Joint Pain Verified 01/21/21 17:18 clindamycin AdvReac Intermediate hives from Verified 01/21/21 17:18 oral form levofloxacin AdvReac Intermediate joint pain Verified 01/21/21 17:18 Penicillins AdvReac Unknown Unknown Verified 01/21/21 17:18 Home Meds Home Medications Medication Instructions Recorded Confirmed cetirizine 10 mg capsule (Zyrtec) 10 mg PO DAILY 02/27/19 01/21/21 Multiple Vitamin Suppliments 1 dose PO DAILY 01/21/21 01/21/21 glucosamine-chondroitin 250 mg-200 1 tab PO DAILY 01/21/21 01/21/21 mg tablet (Osteo Bi-Flex) lansoprazole 30 mg capsule,delayed 30 mg PO DAILY 01/21/21 01/21/21 release (Prevacid) naproxen sodium 220 mg tablet 440 mg PO BID PRN 01/21/21 01/21/21 (Aleve) sulfamethoxazole 800 1 tab PO BID 01/21/21 01/21/21 mg-trimethoprim 160 mg tablet Previous Rx's Medication Instructions Recorded metronidazole 500 mg tablet 500 mg PO TID #30 tab 12/21/20 hydrocodone-homatropine 5 mg-1.5 5 ml PO Q6H PRN #473 ml 12/29/20 mg/5 mL oral syrup Results & Data (ED) Vital Signs Vital Signs - 24 hr 01/21/21 14:36 01/21/21 16:26 01/21/21 16:37 Temperature 36.7 C 38.1 C H Temperature Source Temporal Artery Scan Oral Pulse Rate 137 H 126 H Pulse Rate [Apical] 124 H Pulse Rate from SpO2 Sensor 125 H Respiratory Rate 20 23 30 H Respiratory Effort / Characteristics Non-Labored Spontaneous Non-Labored Spontaneous Respiratory Depth Normal Respiratory Pattern Regular Blood Pressure 146/92 H Blood Pressure [Left Arm] 181/97 H Blood Pressure Mean 110 Blood Pressure Mean [Left Arm] 125 Pulse Oximetry 97 95 96 Oxygen Delivery Method Room Air Room Air Room Air Sepsis Recent Fever Within 48 Hours No Sepsis New/Unexplained Change in Mental Status No Sepsis Action Taken by Nursing No Action Required 01/21/21 16:48 01/21/21 17:00 01/21/21 17:07 Temperature Temperature Source Pulse Rate 120 H Pulse Rate [Apical] Pulse Rate from SpO2 Sensor 120 H Respiratory Rate 22 Respiratory Effort / Characteristics Non-Labored Spontaneous Respiratory Depth Respiratory Pattern Blood Pressure Blood Pressure [Left Arm] Blood Pressure Mean Blood Pressure Mean [Left Arm] Pulse Oximetry 95 Oxygen Delivery Method Room Air Room Air Sepsis Recent Fever Within 48 Hours Sepsis New/Unexplained Change in Mental Status Sepsis Action Taken by Nursing 01/21/21 17:30 01/21/21 17:37 01/21/21 18:00 Temperature Temperature Source Pulse Rate 104 H Pulse Rate [Apical] Pulse Rate from SpO2 Sensor 105 H Respiratory Rate 23 Respiratory Effort / Characteristics Non-Labored Spontaneous Non-Labored Spontaneous Respiratory Depth Respiratory Pattern Blood Pressure Blood Pressure [Left Arm] Blood Pressure Mean Blood Pressure Mean [Left Arm] Pulse Oximetry 93 Oxygen Delivery Method Room Air Room Air Sepsis Recent Fever Within 48 Hours Sepsis New/Unexplained Change in Mental Status Sepsis Action Taken by Nursing 01/21/21 18:06 01/21/21 18:30 01/21/21 18:45 Temperature Temperature Source Pulse Rate 102 H 108 H 108 H Pulse Rate [Apical] Pulse Rate from SpO2 Sensor 103 H 107 H 107 H Respiratory Rate 25 H 28 H 20 Respiratory Effort / Characteristics Non-Labored Spontaneous Respiratory Depth Respiratory Pattern Blood Pressure 109/62 113/68 Blood Pressure [Left Arm] Blood Pressure Mean 77 83 Blood Pressure Mean [Left Arm] Pulse Oximetry 94 92 94 Oxygen Delivery Method Room Air Room Air Sepsis Recent Fever Within 48 Hours Sepsis New/Unexplained Change in Mental Status Sepsis Action Taken by Nursing 01/21/21 19:00 01/21/21 19:15 01/21/21 19:30 Temperature Temperature Source Pulse Rate 108 H 101 H 101 H Pulse Rate [Apical] Pulse Rate from SpO2 Sensor 109 H 101 H 101 H Respiratory Rate 18 18 18 Respiratory Effort / Characteristics Non-Labored Spontaneous Non-Labored Spontaneous Respiratory Depth Respiratory Pattern Blood Pressure 124/83 Blood Pressure [Left Arm] Blood Pressure Mean 96 Blood Pressure Mean [Left Arm] Pulse Oximetry 93 94 95 Oxygen Delivery Method Room Air Room Air Sepsis Recent Fever Within 48 Hours Sepsis New/Unexplained Change in Mental Status Sepsis Action Taken by [facility] Medications Current Medication List: was personally reviewed by me Laboratory Data Attestation: I reviewed the patient's lab results. Result diagrams: 01/21/21 16:49 01/21/21 16:49 Lab Results 01/21/21 01/21/21 01/21/21 Range/Units 16:49 16:49 16:49 WBC 20.84 H (4.8-10.8) K/uL RBC 5.12 (4.2-5.4) M/uL Hgb 15.4 (12.0-16.0) g/dL Hct 44.5 (37-47) % MCV 86.9 (80-100) fL MCH 30.1 (25-34) pg MCHC 34.6 (32-36) g/dL RDW Std Deviation 41.3 (36.4-46.3) fL RDW Coeff of Jessenia 12.9 (11.5-14.5) % Plt Count 289 (130-400) K/uL MPV 10.1 (7.4-10.4) fL Immature Gran % (Auto) 0.3 % Neut % (Auto) 93.4 % Lymph % (Auto) 2.1 % [place] % (Auto) 4.1 % Eos % (Auto) 0.1 % Baso % (Auto) 0.0 % Neut # (Auto) 19.44 H (1.4-6.5) K/uL Lymph # (Auto) 0.44 L (1.2-3.4) K/uL [place] # (Auto) 0.86 H (0.11-0.59) K/uL Eos # (Auto) 0.03 (0-0.5) K/uL Baso # (Auto) 0.01 (0-0.2) K/uL Immature Gran # (Auto) 0.06 H (0.00-0.02) K/uL PT 10.3 (9.0-12.0) Seconds INR 1.0 (0.9-1.1) APTT 25.4 (21.0-31.0) Seconds PTT Ratio 1.0 Sodium 135 L (136-145) mmol/L Potassium 3.6 (3.5-5.1) mmol/L Chloride 105 (98-107) mmol/L Carbon Dioxide 19 L (21-32) mmol/L Anion Gap 11.0 (3-11) BUN 11 (7-18) mg/dl Creatinine 0.99 (0.6-1.2) mg/dl Est Cr Clr Drug Dosing 75.9 ml/min Est GFR ( Amer) 71.3 ml/min Est GFR (Non-Af Amer) 61.5 ml/min BUN/Creatinine Ratio 11.4 (10-20) Glucose 141 H (70-99) mg/dl Lactate (0.4-2.0) mmol/L Calcium 9.5 (8.5-10.1) mg/dl Magnesium 1.7 L (1.8-2.4) mg/dl Total Bilirubin 0.5 (0.2-1) mg/dl AST 25 (15-37) U/L ALT 39 (12-78) U/L Alkaline Phosphatase 57 (45-117) U/L Total Creatine Kinase 51 (26-192) U/L Total Protein 7.7 (6.4-8.2) gm/dl Albumin 4.1 (3.4-5.0) gm/dl Globulin 3.6 (2.5-4.0) gm/dl Albumin/Globulin Ratio 1.1 (0.9-2) Procalcitonin (0-0.5) ng/ml Urine Color Urine Appearance (Clear) Urine pH (4.5-7.5) Ur Specific Engelhard (1.000-1.030) Urine Protein (Negative) Urine Glucose (UA) (Negative) Urine Ketones (Negative) Urine Blood (Negative) Urine Nitrite (Negative) Urine Bilirubin (Negative) Urine Urobilinogen (Negative) Ur Leukocyte Esterase (Negative) Urine WBC (Auto) (0-5) /hpf Urine RBC (Auto) (0-4) /hpf U Hyaline Cast (Auto) (0-5) /lpf U Epithel Cells (Auto) (0-5) /lpf Urine Bacteria (Auto) (Negative) COVID-19 Eval Order SARS-CoV-2 (PCR) (Negative) 01/21/21 01/21/21 01/21/21 Range/Units 16:49 16:49 17:00 WBC (4.8-10.8) K/uL RBC (4.2-5.4) M/uL Hgb (12.0-16.0) g/dL Hct (37-47) % MCV (80-100) fL MCH (25-34) pg MCHC (32-36) g/dL RDW Std Deviation (36.4-46.3) fL RDW Coeff of Jessenia (11.5-14.5) % Plt Count (130-400) K/uL MPV (7.4-10.4) fL Immature Gran % (Auto) % Neut % (Auto) % Lymph % (Auto) % [place] % (Auto) % Eos % (Auto) % Baso % (Auto) % Neut # (Auto) (1.4-6.5) K/uL Lymph # (Auto) (1.2-3.4) K/uL [place] # (Auto) (0.11-0.59) K/uL Eos # (Auto) (0-0.5) K/uL Baso # (Auto) (0-0.2) K/uL Immature Gran # (Auto) (0.00-0.02) K/uL PT (9.0-12.0) Seconds INR (0.9-1.1) APTT (21.0-31.0) Seconds PTT Ratio Sodium (136-145) mmol/L Potassium (3.5-5.1) mmol/L Chloride (98-107) mmol/L Carbon Dioxide (21-32) mmol/L Anion Gap (3-11) BUN (7-18) mg/dl Creatinine (0.6-1.2) mg/dl Est Cr Clr Drug Dosing ml/min Est GFR ( Amer) ml/min Est GFR (Non-Af Amer) ml/min BUN/Creatinine Ratio (10-20) Glucose (70-99) mg/dl Lactate 3.9 H* (0.4-2.0) mmol/L Calcium (8.5-10.1) mg/dl Magnesium (1.8-2.4) mg/dl Total Bilirubin (0.2-1) mg/dl AST (15-37) U/L ALT (12-78) U/L Alkaline Phosphatase (45-117) U/L Total Creatine Kinase (26-192) U/L Total Protein (6.4-8.2) gm/dl Albumin (3.4-5.0) gm/dl Globulin (2.5-4.0) gm/dl Albumin/Globulin Ratio (0.9-2) Procalcitonin 3.09 H (0-0.5) ng/ml Urine Color Dark Yellow Urine Appearance Clear (Clear) Urine pH 5.5 (4.5-7.5) Ur Specific Eng[place]hard 1.020 (1.000-1.030) Urine Protein Trace H (Negative) Urine Glucose (UA) Negative (Negative) Urine Ketones Trace H (Negative) Urine Blood Negative (Negative) Urine Nitrite Negative (Negative) Urine Bilirubin Negative (Negative) Urine Urobilinogen Negative (Negative) Ur Leukocyte Esterase Trace H (Negative) Urine WBC (Auto) 1-5 (0-5) /hpf Urine RBC (Auto) 0-4 (0-4) /hpf U Hyaline Cast (Auto) 1-5 (0-5) /lpf U Epithel Cells (Auto) >30 H (0-5) /lpf Urine Bacteria (Auto) Negative (Negative) COVID-19 Eval Order SARS-CoV-2 (PCR) (Negative) 01/21/21 01/21/21 01/21/21 Range/Units 18:13 18:13 18:53 WBC (4.8-10.8) K/uL RBC (4.2-5.4) M/uL Hgb (12.0-16.0) g/dL Hct (37-47) % MCV (80-100) fL MCH (25-34) pg MCHC (32-36) g/dL RDW Std Deviation (36.4-46.3) fL RDW Coeff of Jessenia (11.5-14.5) % Plt Count (130-400) K/uL MPV (7.4-10.4) fL Immature Gran % (Auto) % Neut % (Auto) % Lymph % (Auto) % [place] % (Auto) % Eos % (Auto) % Baso % (Auto) % Neut # (Auto) (1.4-6.5) K/uL Lymph # (Auto) (1.2-3.4) K/uL [place] # (Auto) (0.11-0.59) K/uL Eos # (Auto) (0-0.5) K/uL Baso # (Auto) (0-0.2) K/uL Immature Gran # (Auto) (0.00-0.02) K/uL PT (9.0-12.0) Seconds INR (0.9-1.1) APTT (21.0-31.0) Seconds PTT Ratio Sodium (136-145) mmol/L Potassium (3.5-5.1) mmol/L Chloride (98-107) mmol/L Carbon Dioxide (21-32) mmol/L Anion Gap (3-11) BUN (7-18) mg/dl Creatinine (0.6-1.2) mg/dl Est Cr Clr Drug Dosing ml/min Est GFR ( Amer) ml/min Est GFR (Non-Af Amer) ml/min BUN/Creatinine Ratio (10-20) Glucose (70-99) mg/dl Lactate 2.3 H* (0.4-2.0) mmol/L Calcium (8.5-10.1) mg/dl Magnesium (1.8-2.4) mg/dl Total Bilirubin (0.2-1) mg/dl AST (15-37) U/L ALT (12-78) U/L Alkaline Phosphatase (45-117) U/L Total Creatine Kinase (26-192) U/L Total Protein (6.4-8.2) gm/dl Albumin (3.4-5.0) gm/dl Globulin (2.5-4.0) gm/dl Albumin/Globulin Ratio (0.9-2) Procalcitonin (0-0.5) ng/ml Urine Color Urine Appearance (Clear) Urine pH (4.5-7.5) Ur Specific [place] (1.000-1.030) Urine Protein (Negative) Urine Glucose (UA) (Negative) Urine Ketones (Negative) Urine Blood (Negative) Urine Nitrite (Negative) Urine Bilirubin (Negative) Urine Urobilinogen (Negative) Ur Leukocyte Esterase (Negative) Urine WBC (Auto) (0-5) /hpf Urine RBC (Auto) (0-4) /hpf U Hyaline Cast (Auto) (0-5) /lpf U Epithel Cells (Auto) (0-5) /lpf Urine Bacteria (Auto) (Negative) COVID-19 Eval Order Covid19 at [facility] SARS-CoV-2 (PCR) NEGATIVE (Negative) Administered Medications Acetaminophen (Acetaminophen 325 Mg Tab) 650 mg PO Q4H PRN PRN Reason: pain/fever Stop: 02/20/21 21:32 Last Admin: 01/21/21 21:58 Dose: 650 mg Documented by: [id number] Sodium Chloride (Nss 1000ml) 1,000 mls @ 125 mls/hr IV .Q8H BERTIN Stop: 01/22/21 14:29 Last Admin: 01/21/21 23:01 Dose: 125 mls/hr Documented by: [id number] Discontinued Medications Sodium Chloride (Nss 1000ml) 1,000 mls @ 999 mls/hr IV .Q1H1M BERTIN Stop: 01/21/21 17:37 Last Infusion: 01/21/21 19:28 Dose: 0 mls/hr Documented by: [id number] Admin: 01/21/21 16:58 Dose: 999 mls/hr Documented by: [id number] Sodium Chloride (Nss 1000ml) 1,000 mls @ 999 mls/hr IV .Q1H1M BERTIN Stop: 01/21/21 18:45 Last Infusion: 01/21/21 20:28 Dose: 0 mls/hr Documented by: [id number] Admin: 01/21/21 19:27 Dose: 999 mls/hr Documented by: [id number] Acetaminophen (Ofirmev) 1,000 mg in 100 mls @ 400 mls/hr IV NOW STA Stop: 01/21/21 16:53 Last Infusion: 01/21/21 17:11 Dose: 0 mls/hr Documented by: [id number] Admin: 01/21/21 16:56 Dose: 400 mls/hr Documented by: [id number] Cefepime HCl 2,000 mg/ Syringe 20 mls @ 5 mls/min IV NOW STA Stop: 01/21/21 16:45 Last Admin: 01/21/21 17:36 Dose: 5 mls/min Documented by: [id number] Metronidazole (Flagyl) 500 mg in 100 mls @ 100 mls/hr IV TODAY@1700 BERTIN Stop: 01/21/21 17:59 Last Infusion: 01/21/21 19:45 Dose: 0 mls/hr Documented by: [id number] Admin: 01/21/21 18:02 Dose: 100 mls/hr Documented by: [id number] Lorazepam (Ativan) 0.5 mg in 1 mls @ 1 mls/min IV NOW STA Stop: 01/21/21 16:55 Last Admin: 01/21/21 17:36 Dose: 1 mls/min Documented by: [id number] Ioversol (Optiray 320 125ml) 120 ml IV ONCE ONE Stop: 01/21/21 18:00 Last Admin: 01/21/21 18:00 Dose: 120 ml Documented by: [id number] Ketorolac Tromethamine (Ketorolac Tromethamine 15 Mg/Ml Vial) 10 mg IV NOW ONE Stop: 01/21/21 22:29 Last Admin: 01/21/21 22:48 Dose: 10 mg Documented by: [id number] Morphine Sulfate (Morphine Sulfate 4 Mg/Ml 1 Ml Carp\\Vial) 4 mg IV NOW STA Stop: 01/21/21 19:17 Last Admin: 01/21/21 19:21 Dose: 4 mg Documented by: [id number] Imaging Data Radiologist's Impression: Abdomen/Pelvis CT 01/21/21 16:37 CT OF THE ABDOMEN AND PELVIS WITH CONTRAST CLINICAL HISTORY: recent diverticulitis; febrile, tachycardia COMPARISON STUDY: CT of the abdomen and pelvis January 16, 2021. TECHNIQUE: Following IV administration of 120 mL of Optiray, axial images of the abdomen and pelvis were obtained from the lung bases to the proximal femurs. Images were reviewed in the axial, sagittal, and coronal planes. IV contrast was administered without complication. Automated exposure control was utilized for the study. A dose lowering technique was utilized adhering to the principles of ALARA. CT DOSE: 1870.63 mGy.cm FINDINGS: Please note that the chest CT will be reported separately. No pneumatosis, free air or portal venous gas is present. There is no biliary ductal dilatation status post cholecystectomy. Hepatic steatosis is noted. There are no hepatic lesions. The spleen, adrenal glands and pancreas are unremarkable. There is no hydronephrosis. Subcentimeter right renal lesion favors a cyst. The appendix is normal. There is extensive colonic diverticulosis. Infiltration adjacent to the proximal sigmoid colon shown on prior exam has nearly completely resolved. No free air or abscess. There is no evidence for a bowel obstruction. 3 cm low-attenuation left adnexal lesion is unchanged. No acute fracture or suspicious lesion is identified within the visualized skeletal structures. IMPRESSION: 1. Extensive colonic diverticulosis. Mild acute sigmoid diverticulitis, improved since prior exam with near complete resolution of inflammation. No free air or abscess. 2. No bowel obstructive. No bowel wall thickening. ACT 112: Negative or not required by law. Electronically signed by: Lenny Khanna M.D. 01/21/2021 6:18 PM Chest X-Ray 01/21/21 16:37 SINGLE VIEW CHEST CLINICAL HISTORY: Sepsis. FINDINGS: An AP, portable, upright chest radiograph is compared to study dated 12/17/2020. The cardiomediastinal silhouette is unremarkable. The lungs and pleural spaces are clear. No pneumothorax is seen. The skeletal structures are osteopenic. There are healed left-sided rib fractures. Arthritic change is seen in the left shoulder. IMPRESSION: No active disease in the chest. ACT 112: Negative or not required by law. Electronically signed by: Hi Arana M.D. 01/21/2021 4:58 PM Chest CTA 01/21/21 16:54 CT ANGIOGRAPHY OF THE CHEST, PULMONARY EMBOLUS PROTOCOL CLINICAL HISTORY: Shortness of breath and tachycardia. Evaluate for pulmonary embolus. COMPARISON STUDY: Chest CT October 26, 2017. Chest radiograph performed earlier today. TECHNIQUE: Following IV administration of 120 mL of Optiray, helical axial images of the chest were obtained utilizing the pulmonary embolus protocol. Maximal intensity projections and sagittal and coronal reformats were viewed on an independent 3D workstation. IV contrast was administered without complication. Automated exposure control was utilized for the study. A dose lowering technique was utilized adhering to the principles of ALARA. FINDINGS: No pulmonary emboli are identified. There is no thoracic aortic dissection. There is no pericardial effusion. Size of the heart is normal. There is a small hiatal hernia. No pneumothorax or pleural effusion is noted. There is no consolidation to suggest pneumonia. Central airways are patent. A few tiny bilateral lower lobe pulmonary nodules are unchanged since CT of October 26, 2017. These are benign. The abdomen and pelvis will be reported separately. IMPRESSION: 1. No pulmonary emboli identified. 2. No acute process within the chest. ACT 112: Negative or not required by law. Electronically signed by: Lenny Khanna M.D. 01/21/2021 6:09 PM Discharge Plan Visit Data Chief Complaint: Allergic Reaction Stated Complaint: ALLERGIC REACTION ED Provider: Keyon Rodriguez Discharge Problem: Sepsis, Diverticulitis, Lactic acidosis, Adverse reaction to sulfa antibiotic Patient Disposition: Admitted As Inpatient Discharge Instructions Interventions: ED Discharge Assessment Last Done: 01/21/21 20:57
[2021-01-21] MEDS ORDERED: ACETAMINOPHEN 1,000 MG/100 ML VIAL IV STA (16:39)
[2021-01-21] MEDS ORDERED: CEFEPIME 2,000 MG in SYRINGE 0 ML IV STA (16:42)
[2021-01-21] MEDS ORDERED: SODIUM CHLORIDE 0.9% 1000ML 1,000 ML IV SCH ×2 (16:45→17:45)
[2021-01-21] MEDS ORDERED: LORazepam 0.5 MG/1 ML VIAL IV STA (16:54)
--- NOTE | 2021-01-21 16:59 | XRay Report ---
SINGLE VIEW CHEST CLINICAL HISTORY: Sepsis. FINDINGS: An AP, portable, upright chest radiograph is compared to study dated 12/17/2020. The cardiom ediastinal silhouette is unremarkable. The lungs and pleural spaces are clear. No pneumothorax is see n. The skeletal structures are osteopenic. There are healed left-sided rib fractures. Arthritic bustillo e is seen in the left shoulder. IMPRESSION: No active disease in the chest. ACT 112: Negative or not required by law. Electronically signed by: Hi Arana M.D. 01/21/2021 4:58 PM
[2021-01-21] MEDS ORDERED: metroNIDAZOLE 500 MG/100 ML BAG IV SCH ×2 (17:00→21:33)
[2021-01-21 17:05] LABS: Hematocrit (blood only) 44.5 % (37-47); Hemoglobin 15.4 g/dL (12.0-16.0); Mean Corpuscular Hemoglobin 30.1 pg (25-34); Mean Corpuscular Hgb Conc 34.6 g/dL (32-36); Mean Corpuscular Volume 86.9 fL (80-100); Mean Platelet Volume 10.1 fL (7.4-10.4); Platelet Count 289 K/uL (130-400); RDW Coefficient of Variation 12.9 % (11.5-14.5); RDW Standard Deviation 41.3 fL (36.4-46.3); Red Blood Count 5.12 M/uL (4.2-5.4); White Blood Count 20.84 K/uL (4.8-10.8)
[2021-01-21 17:15] LABS: Appearance Urine Clear (Clear); Bacteria Urine Automated Negative (Negative); Bilirubin Urine Negative (Negative); Blood Urine Negative (Negative); Color Urine Dark Yellow; Epithelial Cell Urine Auto >30 /lpf (0-5); Glucose Urine UA Negative (Negative); Ketones Urine Trace (Negative); Leukocyte Esterase Urine Trace (Negative); Nitrite Urine Negative (Negative); Protein Urine Trace (Negative); RBC Urine Automated 0-4 /hpf (0-4); Urobilinogen Urine Negative (Negative); pH Urine 5.5 (4.5-7.5)
[2021-01-21 17:22] LABS: Partial Thromboplastin Time 25.4 Seconds (21.0-31.0); Prothrombin Time 10.3 Seconds (9.0-12.0)
[2021-01-21 17:27] LABS: Albumin Level 4.1 gm/dl (3.4-5.0); BUN Creatinine Ratio 11.4 (10-20); Calcium 9.5 mg/dl (8.5-10.1); Creatinine Clr Calc Pharmacy 75.9 ml/min; Est GFR (African American) 71.3 ml/min; Est GFR (Non-African American) 61.5 ml/min; Magnesium 1.7 mg/dl (1.8-2.4); Potassium 3.6 mmol/L (3.5-5.1)
[2021-01-21 17:30] LABS: Albumin Globulin Ratio 1.1 (0.9-2); Bilirubin,Total 0.5 mg/dl (0.2-1); Globulin 3.6 gm/dl (2.5-4.0); Total Protein 7.7 gm/dl (6.4-8.2)
[2021-01-21 17:37] LABS: Basophils # (auto) 0.01 K/uL (0-0.2); Eosinophils # (auto) 0.03 K/uL (0-0.5); Eosinophils % (auto) 0.1 %; Immature Granulocytes # (auto) 0.06 K/uL (0.00-0.02); Immature Granulocytes % (auto) 0.3 %; Lymphocytes # (auto) 0.44 K/uL (1.2-3.4); Lymphocytes % (auto) 2.1 %; Monocytes # (auto) 0.86 K/uL (0.11-0.59); Monocytes % (auto) 4.1 %; Neutrophils # (auto) 19.44 K/uL (1.4-6.5); Neutrophils % (auto) 93.4 %
[2021-01-21] MEDS ORDERED: OPTIRAY 320 125ml IV ONE (17:59)
--- NOTE | 2021-01-21 18:10 | CT Scan Report ---
CT ANGIOGRAPHY OF THE CHEST, PULMONARY EMBOLUS PROTOCOL CLINICAL HISTORY: Shortness of breath and tachycardia. Evaluate for pulmonary embolus. COMPARISON STUDY: Chest CT October 26, 2017. Chest radiograph performed earlier today. TECHNIQUE: Following IV administration of 120 mL of Optiray, helical axial images of the chest were o btained utilizing the pulmonary embolus protocol. Maximal intensity projections and sagittal and cor onal reformats were viewed on an independent 3D workstation. IV contrast was administered without co mplication. Automated exposure control was utilized for the study. A dose lowering technique was ut ilized adhering to the principles of ALARA. FINDINGS: No pulmonary emboli are identified. There is no thoracic aortic dissection. There is no pe ricardial effusion. Size of the heart is normal. There is a small hiatal hernia. No pneumothorax or p leural effusion is noted. There is no consolidation to suggest pneumonia. Central airways are patent. A few tiny bilateral lower lobe pulmonary nodules are unchanged since CT of October 26, 2017. These a re benign. The abdomen and pelvis will be reported separately. IMPRESSION: 1. No pulmonary emboli identified. 2. No acute process within the chest. ACT 112: Negative or not required by law. Electronically signed by: Lenny Khanna M.D. 01/21/2021 6:09 PM
--- NOTE | 2021-01-21 18:19 | CT Scan Report ---
CT OF THE ABDOMEN AND PELVIS WITH CONTRAST CLINICAL HISTORY: recent diverticulitis; febrile, tachycardia COMPARISON STUDY: CT of the abdomen and pelvis January 16, 2021. TECHNIQUE: Following IV administration of 120 mL of Optiray, axial images of the abdomen and pelvis w ere obtained from the lung bases to the proximal femurs. Images were reviewed in the axial, sagittal, and coronal planes. IV contrast was administered without complication. Automated exposure control w as utilized for the study. A dose lowering technique was utilized adhering to the principles of JUNIE Edward. CT DOSE: 1870.63 mGy.cm FINDINGS: Please note that the chest CT will be reported separately. No pneumatosis, free air or port al venous gas is present. There is no biliary ductal dilatation status post cholecystectomy. Hepatic steatosis is noted. There are no hepatic lesions. The spleen, adrenal glands and pancreas are unremar kable. There is no hydronephrosis. Subcentimeter right renal lesion favors a cyst. The appendix is no rmal. There is extensive colonic diverticulosis. Infiltration adjacent to the proximal sigmoid colon shown on prior exam has nearly completely resolved. No free air or abscess. There is no evidence for a bowel obstruction. 3 cm low-attenuation left adnexal lesion is unchanged. No acute fracture or susp icious lesion is identified within the visualized skeletal structures. IMPRESSION: 1. Extensive colonic diverticulosis. Mild acute sigmoid diverticulitis, improved since prior exam wit h near complete resolution of inflammation. No free air or abscess. 2. No bowel obstructive. No bowel wall thickening. ACT 112: Negative or not required by law. Electronically signed by: Lenny Khanna M.D. 01/21/2021 6:18 PM
[2021-01-21] MEDS ORDERED: MoRPHine SULFATE 4 MG/ML 1 ML CARP\\VIAL IV STA (19:16)
--- NOTE | 2021-01-21 19:34 | History & Physical Report ---
Date of Service January 21, 2021 Assessment & Plan (1) Adverse reaction to sulfa antibiotic: Plan: Her presentation is consistent with having a hypersensitivity IgE-mediated reaction to Bactrim (despite no rash currently present) with hypotension and fever. She is also having multiple other adverse reactions including nausea, myalgias. Suspect leucocytosis is a stress reaction to this. Will monitor overnight and treat for diverticulitis given severity of reaction however sepsis/diverticulitis appears much less likely No current need for steroids/anti-histamines given resolution of fever and hypotension - if rash develops or ongoing symptoms could consider this. (2) Diverticulitis: Plan: Diverticulitis improving both on imaging and symptomatically except acute worsening earlier today which I suspect is related to Bactrim as above. Suspicion of sepsis is low however will keep NPO to make sure stable overnight given LLQ pain on deep palpation and elevated procalcitonin Continue IV cefepime and metronidazole Follow up blood cultures If doing well tomorrow can likely be switched back to cefdinir and metronidazole for further 10 days to ensure does not return. Follow up colonoscopy with GI in 4-6 weeks (3) Lactic acidosis: Plan: Improved with IV fluids. No acidosisRepeat in AM. Suspect from hypotension as above. Persistantly elevated on last admission in addition. Plan: VTE prophylaxis - low risk Diet - NPO overnight pending improvement in symptoms Disposition - observation statis to med/surg History of Present Illness Chief Complaint: Fever, nausea Primary Care Provider: German Richards MD Jeniffer Phoenix is a 60 year old female who comes to the ER with fever, nausea, headache. Symptoms occurred suddenly today approximately 1 hour after taking Bactrim. She was hospitalized here from December 18 - due to diverticulitis. This was treated with IV cefepime and metronidazole with improvement in her abdominal "heaviness" and she was discharged on cefdinir and metronidazole. Antibiotics were extended by her PCP due to ongoing symptoms of LLQ abdominal heaviness and she was on antibiotics for 30 days. Due to persistent symptoms a repeat CT was performed last week which showed improving diverticulitis but since it had not resolved her PCP decided to switch her onto bactrim and metronidazole for a following 10 days. She has never taken Bactrim before. 1 hour after she took Bactrim she noted headache, fever, nausea and back pain which started around 11am today. She reports multiple episodes of diverticulitis in the past with initial episode with a perforation which was treated non-operatively. Last colonoscopy was in 2013 aand planning on repeating this once fully recovered from current episode. In the ER CT A/P showed diverticulitis improving but due to fever with increased WBC she was treated as sepsis from diverticulitis with cefepime and metronidazole. For the past 2 days she reports her LLQ heaviness however has actually been Allergies Allergy/AdvReac Type Severity Reaction Status Date / Time Quinolones Allergy Mild Unknown Verified 01/21/21 17:18 ciprofloxacin AdvReac Intermediate Joint Pain Verified 01/21/21 17:18 clindamycin AdvReac Intermediate hives from Verified 01/21/21 17:18 oral form levofloxacin AdvReac Intermediate joint pain Verified 01/21/21 17:18 Penicillins AdvReac Unknown Unknown Verified 01/21/21 17:18 Home Medications Medication Instructions Recorded Confirmed Type cetirizine 10 mg capsule (Zyrtec) 10 mg PO DAILY 02/27/19 01/21/21 History metronidazole 500 mg tablet 500 mg PO TID #30 tab 12/21/20 01/21/21 Rx hydrocodone-homatropine 5 mg-1.5 5 ml PO Q6H PRN #473 ml 12/29/20 01/21/21 Rx mg/5 mL oral syrup Multiple Vitamin Suppliments 1 dose PO DAILY 01/21/21 01/21/21 History glucosamine-chondroitin 250 mg-200 1 tab PO DAILY 01/21/21 01/21/21 History mg tablet (Osteo Bi-Flex) lansoprazole 30 mg capsule,delayed 30 mg PO DAILY 01/21/21 01/21/21 History release (Prevacid) naproxen sodium 220 mg tablet 440 mg PO BID PRN 01/21/21 01/21/21 History (Aleve) sulfamethoxazole 800 1 tab PO BID 01/21/21 01/21/21 History mg-trimethoprim 160 mg tablet Past Med/Surg History Medical History Acute diverticulitis Allergic rhinitis Asthma Surgical History History of colon surgery History of colonoscopy History of tonsillectomy and adenoidectomy Family History Mother Benign colon polyp Osteoporosis Aunt Colon cancer Osteoporosis Grandmother (Maternal) Colon cancer Father Congenital heart disease Diabetes Denies family history of Ovarian cancer Breast cancer Social History Smoking Status: Former smoker Second Hand Exposure: No; Do You Dip or Chew Tobacco: No; Tobacco Cessation Education Requested by Patient: No Hx Alcohol Use: Yes Hx Substance Use: No Preferred Language: Tajik Communication Ability: Effective [employer]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 Beliefs That Will Affect Care: None marital status: Current Living Situation: Spouse Other Information That Helps Us Care for You: No Feels Safe at Home: Yes Safety Concerns: Feels Safe At This Time Assistive Devices: None Review of Systems Review of Systems: All systems reviewed & are unremarkable except as noted in HPI & below Physical Exam Constitutional: WD/WN, vitals as above Eyes: + anicteric sclerae; normal pupil size ENMT: external ear and nose normal, oropharynx normal Neck: trachea midline, no thyromegaly Respiratory: normal respiratory effort, lungs clear to auscultation Cardiovascular: RRR, no murmur, no edema Gastrointestinal (Abdomen): Inspection/Auscultation: abdomen normal to inspection and normal bowel sounds Percussion/Palpation: + abdomen tender (mildly tender LLQ on deep palpation) and abdomen soft; no guarding and abdomen not rigid Musculoskeletal: no cyanosis or clubbing, extremities motor strength 5/5 Skin: no rashes, warm and dry Neurologic: moves all extremities and awake; not confused Psychiatric: A+Ox3, euthymic affect Genitourinary: no CVA tenderness Results & Data Results & Data ([facility]) Vital Signs (Past 12 Hours) Vital Signs Temp Pulse Pulse Resp BP BP Pulse Ox 01/21/21 19:00 108 H 18 93 01/21/21 18:45 108 H 20 94 01/21/21 18:30 108 H 28 H 113/68 92 01/21/21 18:06 102 H 25 H 109/62 94 01/21/21 17:30 104 H 23 93 01/21/21 17:00 120 H 22 95 01/21/21 16:37 126 H 30 H 96 01/21/21 16:26 38.1 C H 124 H 23 181/97 H 95 01/21/21 14:36 36.7 C 137 H 20 146/92 H 97 Diagnostic Findings SINGLE VIEW CHEST CLINICAL HISTORY: Sepsis. FINDINGS: An AP, portable, upright chest radiograph is compared to study dated 12/17/2020. The cardiomediastinal silhouette is unremarkable. The lungs and pleural spaces are clear. No pneumothorax is seen. The skeletal structures are osteopenic. There are healed left-sided rib fractures. Arthritic change is seen in the left shoulder. IMPRESSION: No active disease in the chest. CT ANGIOGRAPHY OF THE CHEST, PULMONARY EMBOLUS PROTOCOL CLINICAL HISTORY: Shortness of breath and tachycardia. Evaluate for pulmonary embolus. COMPARISON STUDY: Chest CT October 26, 2017. Chest radiograph performed earlier today. TECHNIQUE: Following IV administration of 120 mL of Optiray, helical axial images of the chest were obtained utilizing the pulmonary embolus protocol. Maximal intensity projections and sagittal and coronal reformats were viewed on an independent 3D workstation. IV contrast was administered without complication. Automated exposure control was utilized for the study. A dose lowering technique was utilized adhering to the principles of ALARA. FINDINGS: No pulmonary emboli are identified. There is no thoracic aortic dissection. There is no pericardial effusion. Size of the heart is normal. There is a small hiatal hernia. No pneumothorax or pleural effusion is noted. There is no consolidation to suggest pneumonia. Central airways are patent. A few tiny bilateral lower lobe pulmonary nodules are unchanged since CT of October 26, 2017. These are benign. The abdomen and pelvis will be reported separately. IMPRESSION: 1. No pulmonary emboli identified. 2. No acute process within the chest. CT OF THE ABDOMEN AND PELVIS WITH CONTRAST CLINICAL HISTORY: recent diverticulitis; febrile, tachycardia COMPARISON STUDY: CT of the abdomen and pelvis January 16, 2021. TECHNIQUE: Following IV administration of 120 mL of Optiray, axial images of the abdomen and pelvis were obtained from the lung bases to the proximal femurs. Images were reviewed in the axial, sagittal, and coronal planes. IV contrast was administered without complication. Automated exposure control was utilized for the study. A dose lowering technique was utilized adhering to the principles of ALARA. CT DOSE: 1870.63 mGy.cm FINDINGS: Please note that the chest CT will be reported separately. No pneumatosis, free air or portal venous gas is present. There is no biliary ductal dilatation status post cholecystectomy. Hepatic steatosis is noted. There are no hepatic lesions. The spleen, adrenal glands and pancreas are unremarkable. There is no hydronephrosis. Subcentimeter right renal lesion favors a cyst. The appendix is normal. There is extensive colonic diverticulosis. Infiltration adjacent to the proximal sigmoid colon shown on prior exam has nearly completely resolved. No free air or abscess. There is no evidence for a bowel obstruction. 3 cm low-attenuation left adnexal lesion is unchanged. No acute fracture or suspicious lesion is identified within the visualized skeletal structures. IMPRESSION: 1. Extensive colonic diverticulosis. Mild acute sigmoid diverticulitis, improved since prior exam with near complete resolution of inflammation. No free air or abscess. 2. No bowel obstructive. No bowel wall thickening. Medications Administered ER Medications Given: NSS 2L bolus Acetaminophen 1g IV Cefepime 2g IV Metronidazole 500mg IV Lorazepam 0.5mg IV Morphine 4mg IV ECG Indication: tachycardia Rate (beats per minute): 104 Rhythm: sinus tachycardia Findings: no acute ischemic change Comparison ECG Date: from (Dec 17, 2020) Change: no significant change Code Status & VTE Plan Code Status Full VTE Prophylaxis Plan VTE Prophylaxis will be ordered: No Reason for no VTE drug order: Treatment not indicated Reason for no VTE mechanical prophylaxis: Treatment not indicated PG Care Time/CCT Total # of Minutes Spent Total Time Spent with Patient: Total time spent is greater than 50% in coordination of care (as documented) at patient's floor/unit and/or counseling patient: Coding Level of Care Code INT OBSERVATION CARE 70M LVL 3 Diagnoses Diverticulitis K57.92 Adverse reaction to sulfa antibiotic T37.0X5A Lactic acidosis E87.2
[2021-01-21] MEDS ORDERED: ONDANSETRON INJ 2 MG/ML 2 ML VIAL IV PRN (21:33)
[2021-01-21] MEDS: ACETAMINOPHEN 325 MG TAB PO PRN (21:58)
[2021-01-21] MEDS ORDERED: KETOROLAC TROMETHAMINE 15 MG/ML VIAL IV ONE (22:28)
[2021-01-21] MEDS: SODIUM CHLORIDE 0.9% 1000ML 1,000 ML IV SCH (23:01)
[2021-01-22] MEDS: metroNIDAZOLE 500 MG/100 ML BAG IV SCH ×3 (01:17→17:32)
[2021-01-22] MEDS ORDERED: MoRPHine SULFATE 2 MG/ML CARP IV STA (01:36)
[2021-01-22] MEDS: CEFEPIME 2,000 MG in SYRINGE 0 ML IV SCH ×3 (01:58→17:32)
[2021-01-22] MEDS ORDERED: metroNIDAZOLE 500 MG TAB PO SCH (02:00)
[2021-01-22] MEDS: KETOROLAC TROMETHAMINE 15 MG/ML VIAL IV PRN ×3 (04:42→20:57)
[2021-01-22] MEDS: SODIUM CHLORIDE 0.9% 1000ML 1,000 ML IV SCH (05:54)
[2021-01-22] MEDS: MULTIVITAMIN TAB PO SCH (08:25)
[2021-01-22] MEDS: CETIRIZINE HCL 10 MG TABLET PO SCH (08:26)
[2021-01-22] MEDS: LANSOPRAZOLE 30 MG SOLTAB PO SCH (08:26)
[2021-01-22 08:32] LABS: Basophils # (auto) 0.02 K/uL (0-0.2); Basophils % (auto) 0.2 %; Eosinophils # (auto) 0.22 K/uL (0-0.5); Eosinophils % (auto) 2.1 %; Hematocrit (blood only) 34.2 % (37-47); Hemoglobin 11.8 g/dL (12.0-16.0); Immature Granulocytes # (auto) 0.02 K/uL (0.00-0.02); Immature Granulocytes % (auto) 0.2 %; Lymphocytes # (auto) 1.37 K/uL (1.2-3.4); Lymphocytes % (auto) 13.2 %; Mean Corpuscular Hemoglobin 29.7 pg (25-34); Mean Corpuscular Hgb Conc 34.5 g/dL (32-36); Mean Corpuscular Volume 86.1 fL (80-100); Mean Platelet Volume 9.5 fL (7.4-10.4); Monocytes # (auto) 0.57 K/uL (0.11-0.59); Monocytes % (auto) 5.5 %; Neutrophils % (auto) 78.8 %; Platelet Count 226 K/uL (130-400); RDW Coefficient of Variation 13.5 % (11.5-14.5); RDW Standard Deviation 42.9 fL (36.4-46.3); Red Blood Count 3.97 M/uL (4.2-5.4)
[2021-01-22 08:40] LABS: BUN Creatinine Ratio 19.3 (10-20); Calcium 8.4 mg/dl (8.5-10.1); Creatinine Clr Calc Pharmacy 132.3 ml/min; Est GFR (Non-African American) 100.1 ml/min; Potassium 3.8 mmol/L (3.5-5.1)
[2021-01-22] MEDS ORDERED: NON-FORMULARY MEDICATION (Glucosamine-Chondroitin [Osteo Bi-Flex] 250-200 mg Tablet) PO SCH (09:00)
[2021-01-22] MEDS ORDERED: diphenhydrAMINE 50 MG/ML VIAL IV STA (09:40)
[2021-01-22] MEDS ORDERED: methylPREDNISolone 40 MG in SYRINGE 0 ML IV ONE (10:00)
[2021-01-22] MEDS: POLYETHYLENE (MIRALAX) 17 GM PACK PO SCH (10:24)
--- NOTE | 2021-01-22 10:25 | Hospitalist Progress Note ---
Date of Service January 22, 2021 Assessment & Plan (1) Adverse reaction to sulfa antibiotic: Plan: - Initial presentation with fever, hypotension, cough, throat tightness - since resolved but having diffuse joint aches/headaches - question if this is serum sickness? Sulfas are known to cause - She is no hemodynamically stable - WBC normalized and lactic normalized - suspect this was reactive/dehydration instead of sepsis - She does follow with Dr. Jamil and receives allergy injections - Would recommend avoidance of sulfa antibiotics - Pain control - Toradol seems to be assisting with joint aches - Will give Solu-Medrol 40 mg IV x 1 dose and Benadryl x 1 dose - to assist with the achiness and suspicion for serum sickness - again is hemodynamically stable but would assist with more comfortable resolution -- Bactrim does take about 40 hours to be fully removed from the body (2) Diverticulitis: Plan: - Diverticulitis improving both on imaging and symptomatically except acute worsening earlier today which I suspect is related to Bactrim as above. - Elevated procalcitonin - will recheck for trending - Continue IV cefepime and metronidazole - Follow up blood cultures - currently pending - Continue Miralax daily - Likely can switch back to cefdinir and metronidazole to complete 10 days treatment on D/C - Follow up colonoscopy with GI in 4-6 weeks (3) Lactic acidosis: Plan: - RESOLVED - Low suspicion for infectious cause - likely in setting of dehydration/hypotension - did resolve with fluids Plan: VTE prophylaxis - low risk/ambulation Disposition - Continued monitoring with Steroids/Anti-histamine; do not anticipate home needs - likely can D/C tomorrow pending symptom improvement Admission and Anticipated Discharge Date Admission Date: January 21, 2021 Subjective Reports ongoing diffuse body aches mostly of joints. No longer having fever or hypotension. She feels run down and fatigued. She reports she did have Bactrim in the past and had pains with that. This time she had coughing and throat tightness. This as well as resolved. Not having any abdominal pain. Takes daily Miralax to keep a regular bowel habit. Isn't very hungry just because of feeling rundown but no nausea/vomiting. Review of Systems Review of Systems: All systems reviewed & are unremarkable except as noted in Subjective Physical Exam Physical Exam: PHYSICAL EXAM General Appearance: WDWN in NAD but does look fatigued who is A&O x 3 HEENT: Head is normocephalic/atraumatic; Hearing grossly intact; Mucous membranes moist Neck: Supple; Trachea midline; Neg JVD Heart: RRR with no M/G/R Lungs: CTA in all lung cody bilaterally; Respirations unlabored; Neg accessory muscle use Abdomen: Soft, non-tender, non-distended; Positive BS x 4 quadrants Extremities: Neg cyanosis or edema Neurological: Speech clear; Gross motor/sensory function intact; Neg focal neurologic deficits Psychiatric: Appropriate mood/affect Skin: Normal Color; Warm/Dry Results & Data Results & Data ([facility]) Vital Signs (Past 12 Hours) Vital Signs Temp Pulse Resp BP Pulse Ox 01/22/21 06:57 36.7 C 87 16 106/69 96 01/22/21 04:46 37.2 C 01/21/21 23:41 37.1 C 86 16 96/59 L 95 PG Care Time/CCT Total # of Minutes Spent Total Time Spent with Patient: Total time spent is greater than 50% in coordination of care (as documented) at patient's floor/unit and/or counseling patient: Coding Level of Care Code 10409 Subseq Hosp Care Lvl 3 Diagnoses Adverse reaction to sulfa antibiotic T37.0X5A Encounter type: initial encounter Diverticulitis K57.92 Lactic acidosis E87.2 (1) Adverse reaction to sulfa antibiotic Encounter type: initial encounter Qualified Code(s): T37.0X5A - Adverse effect of sulfonamides, initial encounter
[2021-01-22 11:47] LABS: Lyme Ab IgG w/WB Rflx Negative (Negative); Lyme Ab IgM w/WB Rflx Negative (Negative)
[2021-01-22] MEDS: HYDROcodone/HOMATROPINE SYRUP 5MG/1.5MG 5ML UDP PO PRN (12:38)
[2021-01-22] MEDS: ACETAMINOPHEN 325 MG TAB PO PRN (19:28)
--- NOTE | 2021-01-22 19:41 | Electrocardiogram Report ---
Test Reason : Blood Pressure : / mmHG Vent. Rate : 104 BPM Atrial Rate : 104 BPM P-R Int : 158 ms QRS Dur : 080 ms QT Int : 336 ms P-R-T Axes : 032 007 016 degrees QTc Int : 441 ms Sinus tachycardia Possible Inferior infarct , age undetermined Cannot rule out Anterior infarct , age undetermined Abnormal ECG When compared with ECG of 17-DEC-2020 20:53, HR has decreased by 42 bpm Criteria for Inferior infarct is now Present Confirmed by Jey Mai ([id number]) on 01/22/2021 7:40:51 PM Referred By: German Richards Confirmed By:Jey Mai
[2021-01-22] MEDS: ADVANCED PROBIOTIC 1250 MG CAPSULE PO SCH (20:56)
[2021-01-23] MEDS: CEFEPIME 2,000 MG in SYRINGE 0 ML IV SCH ×2 (02:01→11:20)
[2021-01-23] MEDS: metroNIDAZOLE 500 MG/100 ML BAG IV SCH ×2 (02:01→11:20)
[2021-01-23] MEDS: HYDROcodone/HOMATROPINE SYRUP 5MG/1.5MG 5ML UDP PO PRN (03:27)
[2021-01-23 07:13] LABS: Hematocrit (blood only) 37.8 % (37-47); Hemoglobin 12.6 g/dL (12.0-16.0); Mean Corpuscular Hemoglobin 29.3 pg (25-34); Mean Corpuscular Hgb Conc 33.3 g/dL (32-36); Mean Corpuscular Volume 87.9 fL (80-100); Mean Platelet Volume 10.1 fL (7.4-10.4); Platelet Count 248 K/uL (130-400); RDW Coefficient of Variation 13.4 % (11.5-14.5); RDW Standard Deviation 43.4 fL (36.4-46.3); White Blood Count 10.55 K/uL (4.8-10.8)
[2021-01-23 07:44] LABS: Albumin Level 3.3 gm/dl (3.4-5.0); BUN Creatinine Ratio 16.6 (10-20); C Reactive Protein 5.15 mg/dl (0-0.29); Calcium 9.3 mg/dl (8.5-10.1); Creatinine Clr Calc Pharmacy 125.7 ml/min; Est GFR (Non-African American) 98.4 ml/min; Potassium 3.7 mmol/L (3.5-5.1)
[2021-01-23 07:47] LABS: Bilirubin,Total 0.2 mg/dl (0.2-1); Globulin 3.4 gm/dl (2.5-4.0); Total Protein 6.7 gm/dl (6.4-8.2)
[2021-01-23] MEDS ORDERED: predniSONE 20 MG TAB PO SCH (09:00)
[2021-01-23] MEDS: POLYETHYLENE (MIRALAX) 17 GM PACK PO SCH (09:28)
[2021-01-23] MEDS: ADVANCED PROBIOTIC 1250 MG CAPSULE PO SCH (09:34)
[2021-01-23] MEDS: CETIRIZINE HCL 10 MG TABLET PO SCH (09:34)
[2021-01-23] MEDS: LANSOPRAZOLE 30 MG SOLTAB PO SCH (09:34)
[2021-01-23] MEDS: MULTIVITAMIN TAB PO SCH (09:36)
--- NOTE | 2021-01-23 12:29 | Discharge Summary ---
Date of Service January 23, 2021 Admission HPI Per Admitting Provider Jeniffer Phoenix is a 60 year old female who comes to the ER with fever, nausea, headache. Symptoms occurred suddenly today approximately 1 hour after taking Bactrim. She was hospitalized here from December 18 - due to diverticulitis. This was treated with IV cefepime and metronidazole with improvement in her abdominal "heaviness" and she was discharged on cefdinir and metronidazole. Antibiotics were extended by her PCP due to ongoing symptoms of LLQ abdominal heaviness and she was on antibiotics for 30 days. Due to persistent symptoms a repeat CT was performed last week which showed improving diverticulitis but since it had not resolved her PCP decided to switch her onto bactrim and metronidazole for a following 10 days. She has never taken Bactrim before. 1 hour after she took Bactrim she noted headache, fever, nausea and back pain which started around 11am today. She reports multiple episodes of diverticulitis in the past with initial episode with a perforation which was treated non-operatively. Last colonoscopy was in 2012 aand planning on repeating this once fully recovered from current episode. In the ER CT A/P showed diverticulitis improving but due to fever with increased WBC she was treated as sepsis from diverticulitis with cefepime and metronidazole. For the past 2 days she reports her LLQ heaviness however has actually been Principal Diagnosis Possible Allergic Reaction to Sulfa; Diverticulitis Discharge Exam PHYSICAL EXAM General Appearance: WDWN in NAD who is A&O x 3 HEENT: Head is normocephalic/atraumatic; Hearing grossly intact; Mucous membranes moist Neck: Supple; Trachea midline; Neg JVD Heart: RRR with no M/G/R Lungs: CTA in all lung cody bilaterally; Respirations unlabored; Neg accessory muscle use Abdomen: Soft, non-tender, non-distended; Positive BS x 4 quadrants Extremities: Neg cyanosis or edema Neurological: Speech clear; Gross motor/sensory function intact; Neg focal neurologic deficits Psychiatric: Appropriate mood/affect Skin: Normal Color; Warm/Dry Discharge Data Allergies Allergy/AdvReac Type Severity Reaction Status Date / Time Quinolones Allergy Mild Unknown Verified 01/21/21 17:18 ciprofloxacin AdvReac Intermediate Joint Pain Verified 01/21/21 17:18 clindamycin AdvReac Intermediate hives from Verified 01/21/21 17:18 oral form levofloxacin AdvReac Intermediate joint pain Verified 01/21/21 17:18 Penicillins AdvReac Unknown Unknown Verified 01/21/21 17:18 Consultations 01/21/21 18:25 ED Decision to Admit Stat Ordered Studies Abdomen/Pelvis CT 01/21/21 16:37 CT OF THE ABDOMEN AND PELVIS WITH CONTRAST CLINICAL HISTORY: recent diverticulitis; febrile, tachycardia COMPARISON STUDY: CT of the abdomen and pelvis January 16, 2021. TECHNIQUE: Following IV administration of 120 mL of Optiray, axial images of the abdomen and pelvis were obtained from the lung bases to the proximal femurs. Images were reviewed in the axial, sagittal, and coronal planes. IV contrast was administered without complication. Automated exposure control was utilized for the study. A dose lowering technique was utilized adhering to the principles of ALARA. CT DOSE: 1870.63 mGy.cm FINDINGS: Please note that the chest CT will be reported separately. No pneumatosis, free air or portal venous gas is present. There is no biliary ductal dilatation status post cholecystectomy. Hepatic steatosis is noted. There are no hepatic lesions. The spleen, adrenal glands and pancreas are unremarkable. There is no hydronephrosis. Subcentimeter right renal lesion favors a cyst. The appendix is normal. There is extensive colonic diverticulosis. Infiltration adjacent to the proximal sigmoid colon shown on prior exam has nearly completely resolved. No free air or abscess. There is no evidence for a bowel obstruction. 3 cm low-attenuation left adnexal lesion is unchanged. No acute fracture or suspicious lesion is identified within the visualized skeletal structures. IMPRESSION: 1. Extensive colonic diverticulosis. Mild acute sigmoid diverticulitis, improved since prior exam with near complete resolution of inflammation. No free air or abscess. 2. No bowel obstructive. No bowel wall thickening. ACT 112: Negative or not required by law. Electronically signed by: Lenny Khanna M.D. 01/21/2021 6:18 PM Chest X-Ray 01/21/21 16:37 SINGLE VIEW CHEST CLINICAL HISTORY: Sepsis. FINDINGS: An AP, portable, upright chest radiograph is compared to study dated 12/17/2020. The cardiomediastinal silhouette is unremarkable. The lungs and pleural spaces are clear. No pneumothorax is seen. The skeletal structures are osteopenic. There are healed left-sided rib fractures. Arthritic change is seen in the left shoulder. IMPRESSION: No active disease in the chest. ACT 112: Negative or not required by law. Electronically signed by: Hi Arana M.D. 01/21/2021 4:58 PM Chest CTA 01/21/21 16:54 CT ANGIOGRAPHY OF THE CHEST, PULMONARY EMBOLUS PROTOCOL CLINICAL HISTORY: Shortness of breath and tachycardia. Evaluate for pulmonary embolus. COMPARISON STUDY: Chest CT October 26, 2017. Chest radiograph performed earlier today. TECHNIQUE: Following IV administration of 120 mL of Optiray, helical axial images of the chest were obtained utilizing the pulmonary embolus protocol. Maximal intensity projections and sagittal and coronal reformats were viewed on an independent 3D workstation. IV contrast was administered without complication. Automated exposure control was utilized for the study. A dose lowering technique was utilized adhering to the principles of ALARA. FINDINGS: No pulmonary emboli are identified. There is no thoracic aortic dissection. There is no pericardial effusion. Size of the heart is normal. There is a small hiatal hernia. No pneumothorax or pleural effusion is noted. There is no consolidation to suggest pneumonia. Central airways are patent. A few tiny bilateral lower lobe pulmonary nodules are unchanged since CT of October 26, 2017. These are benign. The abdomen and pelvis will be reported separately. IMPRESSION: 1. No pulmonary emboli identified. 2. No acute process within the chest. ACT 112: Negative or not required by law. Electronically signed by: Lenny Khanna M.D. 01/21/2021 6:09 PM Hospital Course (1) Adverse reaction to sulfa antibiotic: - Initial presentation with fever, hypotension, cough, throat tightness - since resolved but having diffuse polyarthralgias - She is no hemodynamically stable - WBC normalized and lactic normalized - suspect this was reactive/dehydration instead of sepsis - She does follow with Dr. Jamil and receives allergy injections -- Discussed with Dr. Jamil - recommend complement C3/C4 and trypstase which are reference labs and discussed with patient they may take about a week to come back - Would recommend avoidance of sulfa antibiotics - even though unique presentation - Toradol seems to be assisting with joint aches (2) Diverticulitis: - Diverticulitis improving both on imaging and symptomatically except acute worsening earlier today which I suspect is related to Bactrim as above. - Elevated procalcitonin - recheck is elevated however clinically does not appear septic and labs resolved quickly - Treated with IV cefepime and metronidazole - will convert to Cefdinir/Flagyl x 10 days - sent Rx for Cefdinir as she has Flagyl at home - Follow up blood cultures - NGTD - Continue Miralax daily - Follow up colonoscopy with GI in 4-6 weeks -- Given the prolonged nature of the diverticulitis and no signs of abscess...the polyarthragias..elevated CRP (elevated procal could be due to diffuse inflammation) - do question if this could have an inflammatory bowel component and colonoscopy could help determine if this may be an ulcerative colitis?? No family history, just irritable bowel in a sister (3) Lactic acidosis: - RESOLVED - Low suspicion for infectious cause - likely in setting of dehydration/hypotension - did resolve with fluids VTE prophylaxis - low risk/ambulation Disposition: - Give Prednisone 20 mg x 2 days then 10 mg x 4 days to taper -- Help with delayed hypersensitivity reaction - Toradol PRN - did discuss not over use abdoulaye. with steroids - Abx x 10 days as described above - Has F/U with PCP on Tuesday - Need GI F/U - patient reports PCP is assisting and did give some names of local GI specialists Total Time Total Time Spent Total Time Spent (In Minutes): Spent greater than 30 minutes preparing patient for discharge. This includes discussion with patient/family, assessment, intervention, medication reconciliation, and coordination of care. Discharge Plan Discharge Items Patient Disposition: Home - Self-Care Reason For Visit: DIVERTICULITIS, ALLERGIC REACTION Discharge Diagnosis: Possible Allergic Reaction to Sulfa; Diverticulitis Activity: Resume your previous activity Non-emergency contact: Primary Care Provider Call non-emergency contact if: you have any medication questions, your symptoms worsen and you have a fever Follow-up/Referrals: German Richards MD [Primary Care Provider] - (Has appointment on Tuesday. Patient is aware) Diet: Regular Addtl Attending Provider Instructions: Possible Allergic Reaction to Sulfa (Bactrim) - It is hard to say directly if this is an allergic reaction given the unit presentation. However, given the cough and throat tight feeling would recommend avoidance of sulfa antibiotics like Bactrim - I spoke with your mainframe programmer Dr. Jamil and we did send out some labs - complement C3 and C4 and tryptase to see if that can help delineate the type of reaction. These are send out labs and can take some time to come back. Diffuse Body Aches: - Maybe these sign is from the antibiotics but given the long standing need for Abx with the diverticulitis, it does make me wonder if there could be more of an inflammatory component. - As discussed, colonoscopy would be the best approach to evaluated for inflammatory bowel conditions like ulcerative colitis. People who have ulcerative colitis can get diffuse inflammation in the body which can cause some joint aches/pains, especially in the big joints like the shoulders/hips like you have. - Getting established by a GI doctor would be beneficial to have full testing and evaluation. This may not be the diagnosis however it is something to consider. - We do have three GI doctors in the area, [facility] (Dr. Day/Dr. Marie), [facility] (Dr. Holloway), and [facility] (multiple doctors). - Will prescribed Toradol to help with pain. As mentioned if using consistently we recommend no more than 5 days. However if only using once a day or rarely it can be used past that 5 day enoch. Would no use any other forms of Ibup ofen/Motrin/Aleve/Naproxen... as Toradol is basically a stronger form of Ibuprofen. - May use Tylenol inbetween Diverticulitis: - Will continue your treatment with Cefdinir and Flagyl. Thankfully the CT shows improvement -- You had one dose of Flagyl and can take two more doses today at home spread out; As well start the Cefdinir this evening. - Recommend to follow-up with your family doctor for any ongoing issues. Pending Studies at Discharge: Yes Studies:: Complement C3 and C4; Tryptase Stand-Alone Forms: My [facility] [employer], Smoking Cessation Medications and DC Order Prescriptions: New prednisone 20 mg Tablet 20 mg PO DAILY Qty: 2 RF: 0 cefdinir 300 mg capsule 300 mg PO BID 10 Days Qty: 20 RF: 0 Continued hydrocodone-homatropine 5-1.5 mg/5 mL syrup 5 ml PO Q6H PRN (Reason: cough) Qty: 473 RF: 0 Zyrtec 10 mg capsule 10 mg PO DAILY RF: 0 metronidazole 500 mg tablet 500 mg PO TID Qty: 30 RF: 0 lansoprazole [Prevacid] 30 mg Capsule,Delayed Release(Dr/Ec) 30 mg PO DAILY RF: 0 glucosamine-chondroitin [Osteo Bi-Flex] 250-200 mg Tablet 1 tab PO DAILY RF: 0 Multiple Vitamin Suppliments 1 dose PO DAILY RF: 0 Discontinued sulfamethoxazole-trimethoprim 800-160 mg tablet 1 tab PO BID RF: 0 naproxen sodium [Aleve] 220 mg Tablet 440 mg PO BID PRN (Reason: Pain) RF: 0 Discharge Orders: Discharge Order (Routine); Ordered 01/23/21 Ordered By: Christina Hinkle Admission Data Admit Date/Time: 01/21/21 19:45 Attending Provider: Gary France Admit Provider: Ramón Vasquez Primary Care Provider: German Richards Other Providers: Ramón Vasquez Other Interventions: Discharge Summary Assessment (RN) Last Done: 01/23/21 11:57 Supervising Physician Co-Signing Physician Notes Attending note: patient seen and examined with Christina Hinkle PA-C. I agree with her discharge summary. I personally reviewed the labs and imaging findings. patient feeling a lot better, no abdominal pain, eating well no further allergic symptoms - Allergic reaction to Bactrim: no further sulfa drugs, off steroids at this time - Diverticulitis: extended infection, several weeks of antibiotics, send home on Cefdinir and Flagyl, follow up with PCP Coding Level of Care Code D/C DAY MANAGEMENT >30 MINS Diagnoses Adverse reaction to sulfa antibiotic T37.0X5A Encounter type: initial encounter Diverticulitis K57.92 Lactic acidosis E87.2
[2021-01-26 12:41] LABS: Complement C3 122 mg/dL (83-193)
== END 2021-01-23 13:25 | disposition home or self-care (01) | DRG 864 ==
LOC: ED 14:23 → 3N 19:45 → SUATTDRO 19:45 → 3N 20:57